=== PATIENT | male | born 1955 | race Caucasian/White ===

== ENCOUNTER 2018-07-08 09:44 | Inpatient (IN) ==
--- NOTE | 2018-07-08 10:05 | Emergency Department Note ---
Disposition Clinical Impression: Defibrillator discharge Chest pain Qualifiers: Chest pain type: unspecified Qualified Code(s): R07.9 - Chest pain, unspecified Disposition: Admitted As Inpatient Condition: Fair Referrals: Krys Muller CNP [Primary Care Provider] - Forms: ED Satisfaction Letter Time of Disposition: 13:55 Chest Pain HPI - General Chief Complaint: ED Chest Pain Stated Complaint: Defibulator went off Time Seen by Provider: 07/08/18 09:52 Source: patient Mode of arrival: wheelchair Limitations: no limitations Vital Signs Reviewed: Yes Nursing Notes Reviewed: Yes - History of Present Illness HPI Narrative: 63-year-old male with history of diabetes, hypertension, A. fib with a AICD presents for evaluation of "defibrillator went off". Patient states he has had it placed in 2010. Noted 2 shocks. States one occurred last night the other one this morning around 4:30. Noted some left-sided tenderness. Denies any chest pain currently. Denies any fevers or cough. Patient states he has not feeling short of breath intermittently over the past month. States that it was placed back in 2010 for his A. fib. Currently on Coumadin and aspirin. Patient denies history of heart attacks. Severity scale (1-10): 4 - Related Data Allergies Allergy/AdvReac Type Severity Reaction Status Date / Time Jvwdild-Gjx-Uyr Reductase Allergy Hives Verified 07/08/18 10:08 Inhibitor [Statins] All systems ED: reviewed and negative except as stated. Constitutional: Denies: fever Cardiovascular: Reports: chest pain. Denies: palpitations Respiratory: Reports: dyspnea. Denies: cough, sputum production Gastrointestinal: Denies: abdominal pain, nausea, vomiting Physical Exam - General Limitations: no limitations General appearance: alert, in no apparent distress - Head Head exam: atraumatic, normocephalic, normal inspection - Eye Eye exam: Present: normal appearance, PERRL, EOMI - ENT ENT exam: normal exam, mucous membranes moist - Neck Neck exam: Present: normal inspection - Chest Chest inspection: Present: normal inspection, symmetric chest wall rise - Respiratory Respiratory exam: Present: normal lung sounds bilaterally. Absent: respiratory distress - Cardiovascular Cardiovascular exam: Present: regular rate, normal rhythm. Absent: systolic murmur - Abdominal Exam Abdominal exam: Present: soft, Non-Tender - Extremities Exam Extremities exam: Present: normal inspection. Absent: pedal edema - Back Exam Back exam: Present: normal inspection - Neurological Exam Neurological exam: Present: alert, oriented X3, CN II-XII intact - Skin Skin exam: Present: warm, dry, intact, normal color Course Course Narrative: Patient seen and examined. Patient will get basic cardiopulmonary screening evaluation. We will attempt to interrogate the pacemaker. Disposition pending. - Reevaluation(s) Reevaluation #1: Patient condition stable. Time: 11:04 Reevaluation #2: Patient interrogation was reviewed. Patient did have 2 isolated episodes of 20/ 30 beats of V. tach with defibrillation and resolution. Patient was symptomatic with those. Will discuss the patient's presentation with cardiology any other recommendations. Time: 13:37 Reevaluation #3: Patient seen and examined. Patient's resting currently. Plan of care discussed at bedside. EKG shows sinus rhythm with T-wave inversions in V1. Left axis. No signs of ST elevation. Time: 13:58 - Consultations Consultation #1: Case discussed with cardiology who recommends admission with observation on telemetry. Time: 13:55 Vital Signs Temperature 98.2 F 07/08/18 09:50 Pulse Rate 59 07/08/18 09:50 Respiratory Rate 18 07/08/18 09:50 Blood Pressure 161/96 07/08/18 09:50 O2 Sat by Pulse Oximetry 100 07/08/18 09:50 Temperature 98.2 F 07/08/18 10:04 Pulse Rate 60 07/08/18 13:00 Respiratory Rate 21 07/08/18 13:00 Blood Pressure 144/97 07/08/18 13:00 O2 Sat by Pulse Oximetry 99 07/08/18 13:00 Oxygen Delivery Oxygen Delivery Room Air Chest Pain - MDM Narrative Medical decision making narrative: Patient seen and examined. Patient came in because of chest pain and defibrillation going off. Patient's been chest pain-free in the ED. Patient interrogation reveals a couple discrete episodes of V. tach with defibrillation. Case was discussed with cardiology recommended observation on telemetry since the patient has had 2 discharges within 24 hours. Patient elected lites reviewed and are essentially normal. Magnesium pending. - Lab Data Lab results reviewed: Yes I reviewed the patient's lab results. Result diagrams: 07/08/18 10:23 07/08/18 10:23 Lab Results 07/08/18 07/08/18 07/08/18 Range/Units 10:23 10:23 10:23 WBC 9.3 (4.3-11.1) K/mcL RBC 4.56 (4.19-5.50) M/mcL Hgb 13.1 (12.9-16.9) g/dL Hct 40.8 (37.5-50.1) % MCV 89.5 (83.0-100.0) fL MCH 28.7 (28.0-33.3) pg MCHC 32.1 (31.6-35.5) g/dL RDW 13.6 (11.5-14.5) % Plt Count 206 (140-400) K/mcL MPV 11.4 (9.4-12.4) fL Immature Gran % 0.4 (0-4) % Seg Neutrophils % 65.0 % Lymphocytes % 19.7 % Monocytes % 8.1 % Eosinophils % 6.3 % Basophils % 0.5 % Neutrophils # 6.0 (1.6-8.9) K/mcL Lymphocytes # 1.8 (0.6-4.6) K/mcL Monocytes # 0.8 (0.0-1.3) K/mcL Eosinophils # 0.6 (0.0-0.6) K/mcL Basophils # 0.1 (0.0-0.2) K/mcL PT 26.8 H (9.4-12.1) Seconds INR 2.4 APTT 44.7 H (26.0-36.0) Seconds Sodium (136-145) mEq/L Potassium (3.5-5.1) mEq/L Chloride (98-107) mEq/L Carbon Dioxide (23-29) mEq/L BUN (8-23) mg/dL Creatinine (0.70-1.30) mg/dL Est GFR ( Amer) (> 60) Est GFR (Non-Af Amer) (> 60) BUN/Creatinine Ratio (6-26) Glucose (70-105) mg/dL Calculated Osmolality (280-300) Calcium (8.6-10.3) mg/dL Troponin I (< 0.04) ng/mL B-Natriuretic Peptide 50 (Less than 100) pg/mL 07/08/18 Range/Units 10:23 WBC (4.3-11.1) K/mcL RBC (4.19-5.50) M/mcL Hgb (12.9-16.9) g/dL Hct (37.5-50.1) % MCV (83.0-100.0) fL MCH (28.0-33.3) pg MCHC (31.6-35.5) g/dL RDW (11.5-14.5) % Plt Count (140-400) K/mcL MPV (9.4-12.4) fL Immature Gran % (0-4) % Seg Neutrophils % % Lymphocytes % % Monocytes % % Eosinophils % % Basophils % % Neutrophils # (1.6-8.9) K/mcL Lymphocytes # (0.6-4.6) K/mcL Monocytes # (0.0-1.3) K/mcL Eosinophils # (0.0-0.6) K/mcL Basophils # (0.0-0.2) K/mcL PT (9.4-12.1) Seconds INR APTT (26.0-36.0) Seconds Sodium 138 (136-145) mEq/L Potassium 4.5 (3.5-5.1) mEq/L Chloride 106 (98-107) mEq/L Carbon Dioxide 23 (23-29) mEq/L BUN 15 (8-23) mg/dL Creatinine 1.26 (0.70-1.30) mg/dL Est GFR ( Amer) > 60 (> 60) Est GFR (Non-Af Amer) 58 L (> 60) BUN/Creatinine Ratio 12 (6-26) Glucose 109 H (70-105) mg/dL Calculated Osmolality 287 (280-300) Calcium 9.1 (8.6-10.3) mg/dL Troponin I < 0.03 (< 0.04) ng/mL B-Natriuretic Peptide (Less than 100) pg/mL - Radiology Data Radiology results reviewed: Yes I reviewed the patient's radiology results. Chest X-Ray 07/08/18 09:54 IMPRESSION: Mild left basilar atelectasis. D/ / Alma Delia Kelly MD / Alma Delia Kelly MD Interpreting Provider: Alma Delia Kelly MD - EKG Data EKG attestation: Yes I reviewed and interpreted this EKG. EKG results narrative: Atrial paced rhythm at a rate of 60. Narrow QRS. Left axis. Q waves in V1. No ST elevation. No old EKGs. Heart Score - Score History: Moderately Suspicious EKG: Non Specific repolarisation Disturbance Age: 45-65 Risk Factors: 1-2 risk factors Troponin: Less than normal limit HEART Score Total: 4 Attestation Statement - Attestation Attestation: I, Bryan Crews DO, examined this patient [id number] and my medical decision-making was reviewed with Dr. Dave Davidson, Resident Physician. I agree with the documented findings, disposition and treatment plan as described except to the extent set forth below. Please see my progress notes for details.
[2018-07-08] MEDS ORDERED: Aspirin 325 MG TABLET PO ONE (10:15)
[2018-07-08 10:36] LABS: Basophils # 0.1 K/mcL (0.0-0.2); Basophils % 0.5 %; Eosinophils # 0.6 K/mcL (0.0-0.6); Eosinophils % 6.3 %; Hematocrit 40.8 % (37.5-50.1); Hemoglobin 13.1 g/dL (12.9-16.9); Immature Granulocytes % 0.4 % (0-4); Lymphocytes # 1.8 K/mcL (0.6-4.6); Lymphocytes % 19.7 %; Mean Corpuscular HGB Conc 32.1 g/dL (31.6-35.5); Mean Corpuscular Hemoglobin 28.7 pg (28.0-33.3); Mean Corpuscular Volume 89.5 fL (83.0-100.0); Mean Platelet Volume 11.4 fL (9.4-12.4); Monocytes # 0.8 K/mcL (0.0-1.3); Monocytes % 8.1 %; Platelet Count 206 K/mcL (140-400); Red Blood Count 4.56 M/mcL (4.19-5.50); Red Cell Distribution Width 13.6 % (11.5-14.5)
--- NOTE | 2018-07-08 10:41 | Emergency Department Note ---
Disposition Clinical Impression: Defibrillator discharge Disposition: Admitted As Inpatient Condition: Fair Referrals: Krys Muller CNP [Primary Care Provider] - Forms: ED Satisfaction Letter Time of Disposition: 13:53 General Adult HPI - General Chief complaint: ED Chest Pain Stated complaint: Defibulator went off Time Seen by Provider: 07/08/18 09:52 Source: patient Mode of arrival: wheelchair Limitations: no limitations - History of Present Illness Pain Scale: 4 - Related Data Allergies Allergy/AdvReac Type Severity Reaction Status Date / Time Pvlnzti-Gsq-Eoa Reductase Allergy Hives Verified 07/08/18 10:08 Inhibitor [Statins] Constitutional: Denies: fever Cardiovascular: Reports: chest pain. Denies: palpitations Respiratory: Reports: dyspnea. Denies: cough, sputum production Gastrointestinal: Denies: abdominal pain, nausea, vomiting Past Medical History - Past Medical History Medical history: Reports: atrial fibrillation, diabetes, hypertension Psychiatric history: Reports: no psych history - Social History Smoking Status: Former smoker Smokeless Tobacco Status: No Alcohol use: Reports: none Drug use: Reports: none Physical Exam - General Limitations: no limitations General appearance: alert, in no apparent distress Course Vital Signs Temperature 98.2 F 07/08/18 09:50 Pulse Rate 59 07/08/18 09:50 Respiratory Rate 18 07/08/18 09:50 Blood Pressure 161/96 07/08/18 09:50 O2 Sat by Pulse Oximetry 100 07/08/18 09:50 Temperature 98.2 F 07/08/18 10:04 Pulse Rate 60 07/08/18 13:00 Respiratory Rate 21 07/08/18 13:00 Blood Pressure 144/97 07/08/18 13:00 O2 Sat by Pulse Oximetry 99 07/08/18 13:00 Oxygen Delivery Oxygen Delivery Room Air Medical Decision Making - Lab Data Result diagrams: 07/08/18 10:23 07/08/18 10:23 Lab Results 07/08/18 07/08/18 07/08/18 Range/Units 10:23 10:23 10:23 WBC 9.3 (4.3-11.1) K/mcL RBC 4.56 (4.19-5.50) M/mcL Hgb 13.1 (12.9-16.9) g/dL Hct 40.8 (37.5-50.1) % MCV 89.5 (83.0-100.0) fL MCH 28.7 (28.0-33.3) pg MCHC 32.1 (31.6-35.5) g/dL RDW 13.6 (11.5-14.5) % Plt Count 206 (140-400) K/mcL MPV 11.4 (9.4-12.4) fL Immature Gran % 0.4 (0-4) % Seg Neutrophils % 65.0 % Lymphocytes % 19.7 % Monocytes % 8.1 % Eosinophils % 6.3 % Basophils % 0.5 % Neutrophils # 6.0 (1.6-8.9) K/mcL Lymphocytes # 1.8 (0.6-4.6) K/mcL Monocytes # 0.8 (0.0-1.3) K/mcL Eosinophils # 0.6 (0.0-0.6) K/mcL Basophils # 0.1 (0.0-0.2) K/mcL PT 26.8 H (9.4-12.1) Seconds INR 2.4 APTT 44.7 H (26.0-36.0) Seconds Sodium (136-145) mEq/L Potassium (3.5-5.1) mEq/L Chloride (98-107) mEq/L Carbon Dioxide (23-29) mEq/L BUN (8-23) mg/dL Creatinine (0.70-1.30) mg/dL Est GFR ( Amer) (> 60) Est GFR (Non-Af Amer) (> 60) BUN/Creatinine Ratio (6-26) Glucose (70-105) mg/dL Calculated Osmolality (280-300) Calcium (8.6-10.3) mg/dL Troponin I (< 0.04) ng/mL B-Natriuretic Peptide 50 (Less than 100) pg/mL 07/08/18 Range/Units 10:23 WBC (4.3-11.1) K/mcL RBC (4.19-5.50) M/mcL Hgb (12.9-16.9) g/dL Hct (37.5-50.1) % MCV (83.0-100.0) fL MCH (28.0-33.3) pg MCHC (31.6-35.5) g/dL RDW (11.5-14.5) % Plt Count (140-400) K/mcL MPV (9.4-12.4) fL Immature Gran % (0-4) % Seg Neutrophils % % Lymphocytes % % Monocytes % % Eosinophils % % Basophils % % Neutrophils # (1.6-8.9) K/mcL Lymphocytes # (0.6-4.6) K/mcL Monocytes # (0.0-1.3) K/mcL Eosinophils # (0.0-0.6) K/mcL Basophils # (0.0-0.2) K/mcL PT (9.4-12.1) Seconds INR APTT (26.0-36.0) Seconds Sodium 138 (136-145) mEq/L Potassium 4.5 (3.5-5.1) mEq/L Chloride 106 (98-107) mEq/L Carbon Dioxide 23 (23-29) mEq/L BUN 15 (8-23) mg/dL Creatinine 1.26 (0.70-1.30) mg/dL Est GFR ( Amer) > 60 (> 60) Est GFR (Non-Af Amer) 58 L (> 60) BUN/Creatinine Ratio 12 (6-26) Glucose 109 H (70-105) mg/dL Calculated Osmolality 287 (280-300) Calcium 9.1 (8.6-10.3) mg/dL Troponin I < 0.03 (< 0.04) ng/mL B-Natriuretic Peptide (Less than 100) pg/mL Attestation Statement - Attestation Attestation: I, Bryan Crews DO, examined this patient [id number] and my medical decision-making was reviewed with Dr. Dave Davidson, Resident Physician. I agree with the documented findings, disposition and treatment plan as described except to the extent set forth below. Please see my progress notes for details. 63-year-old male presents to the emergency room with 2 events where his defibrillator went off overnight and then once in the shower this morning. Patient is a long-standing history of atrial fibrillation with pacemaker placement back in 2010. Is currently on Coumadin for that treatment. Patient has had his defibrillator go off once approximate year ago for the similar issue. He denies any medication changes trauma injuries or other symptoms prior to the event. He denied chest pain shortness of breath headache vision changes nausea vomiting or diarrhea. No fevers no chills. Patient has not had any issues with his pacemaker and has not had it interrogated here recently. Patient will have screening labs including CBC chemistry electrolytes as well as troponin. Chest x-ray will be resulted and EKG will be collected. Vital signs remained stable while here. Patient does not appear to be in any specific distress. The pacemaker will be interrogated. He currently is under the care of cardiology at this facility. Patient will have definitive treatment course and evaluation established in the emergency room. Otherwise no emergent intervention is required. Coagulation studies will be added on considering he is on Coumadin. Physical exam is otherwise unremarkable. Lungs are clear heart is regular abdomen is soft no pulsatile masses or lesions are noted. See detailed documentation of the physical exam, medical intervention, medical decision-making and disposition in the resident physician's note. Patient does see temperature regulator Dr. Castro at this facility. No critical care applied to the patient's treatment course at this time. 1335 Patient has what appears to be interrogation of the pacemaker showing 2 runs of V. fib V. tach. Patient is been doing well here. He has more pain in left side of his chest wall after the defibrillation. The temperature regulator was contacted and they recommended admission for observations considering the 2 times pain defibrillator. Patient is otherwise asymptomatic care with normal labs and a stable INR. Hospitalist was contacted. Dr. Kelly reviewed the case at this point had no other concerns or issues this time. Patient will be observed in the emergency room until admission process is completed.
[2018-07-08 11:00] LABS: INR 2.4; Prothrombin Time 26.8 Seconds (9.4-12.1)
[2018-07-08 11:02] LABS: Activated Partial Thrombo Time 44.7 Seconds (26.0-36.0)
[2018-07-08 11:05] LABS: Troponin I < 0.03 ng/mL (< 0.04)
[2018-07-08 11:09] LABS: BUN/Creatinine Ratio 12 (6-26); Blood Urea Nitrogen 15 mg/dL (8-23); Calcium 9.1 mg/dL (8.6-10.3); Carbon Dioxide 23 mEq/L (23-29); Chloride 106 mEq/L (98-107); Glucose 109 mg/dL (70-105); Osmolality,Calculated 287 (280-300); Potassium 4.5 mEq/L (3.5-5.1); Sodium 138 mEq/L (136-145); eGFR For Non-African Americans 58 (> 60)
--- NOTE | 2018-07-08 13:31 | Electrocardiograph Report ---
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
--- NOTE | 2018-07-08 13:32 | Electrocardiograph Report ---
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
[2018-07-08 14:20] LABS: Magnesium 1.9 mg/dL (1.6-2.6)
[2018-07-08] MEDS ORDERED: traMADol 50 MG TABLET PO PRN (14:20)
[2018-07-08] MEDS ORDERED: Naloxone 0.4 MG/ML INJ IVP PRN (14:20)
[2018-07-08] MEDS ORDERED: Acetaminophen 325 MG TABLET PO PRN (14:20)
[2018-07-08] MEDS ORDERED: *HR* Dextrose 50 % in Water (Syg) 50 ML SYRINGE IVP PRN (14:57)
[2018-07-08] MEDS ORDERED: D5% in Water 1,000 ML IVC PRN (14:57)
[2018-07-08] MEDS ORDERED: Dextrose Gel 15 GM/37.5 ML TUBE PO PRN ×2 (14:57)
[2018-07-08 15:46] LABS: Magnesium 1.9 mg/dL (1.6-2.6); Thyroid Stimulating Hormone 3.926 mcIU/mL (0.340-5.600)
[2018-07-08 16:01] LABS: Digoxin 0.7 ng/mL (0.8-2.0)
[2018-07-08] MEDS ORDERED: Warfarin perPT PO PRN (18:00)
[2018-07-08] MEDS ORDERED: *HR* Warfarin 7.5 MG TABLET PO ONE (18:00)
[2018-07-08] MEDS: Insulin LISPRO 300 UNITS/3 ML VIAL SQ SCH ×2 (21:08→21:09)
[2018-07-09 05:31] LABS: Basophils # 0.1 K/mcL (0.0-0.2); Basophils % 0.6 %; Eosinophils # 0.5 K/mcL (0.0-0.6); Eosinophils % 6.5 %; Hematocrit 38.7 % (37.5-50.1); Hemoglobin 12.5 g/dL (12.9-16.9); Immature Granulocytes % 0.5 % (0-4); Lymphocytes # 1.9 K/mcL (0.6-4.6); Lymphocytes % 24.7 %; Mean Corpuscular HGB Conc 32.3 g/dL (31.6-35.5); Mean Corpuscular Hemoglobin 28.1 pg (28.0-33.3); Mean Platelet Volume 11.7 fL (9.4-12.4); Monocytes # 0.6 K/mcL (0.0-1.3); Monocytes % 7.7 %; Neutrophils # 4.7 K/mcL (1.6-8.9); Platelet Count 197 K/mcL (140-400); Red Blood Count 4.45 M/mcL (4.19-5.50); Red Cell Distribution Width 13.8 % (11.5-14.5)
[2018-07-09 05:35] LABS: INR 2.4; Prothrombin Time 26.7 Seconds (9.4-12.1)
[2018-07-09 05:54] LABS: BUN/Creatinine Ratio 12 (6-26); Blood Urea Nitrogen 14 mg/dL (8-23); Calcium 9.3 mg/dL (8.6-10.3); Carbon Dioxide 25 mEq/L (23-29); Chloride 106 mEq/L (98-107); Glucose 124 mg/dL (70-105); Magnesium 1.9 mg/dL (1.6-2.6); Osmolality,Calculated 288 (280-300); Potassium 4.1 mEq/L (3.5-5.1); Sodium 138 mEq/L (136-145); eGFR For Non-African Americans > 60 (> 60)
[2018-07-09] MEDS: Spironolactone 25 MG TABLET PO SCH (08:04)
[2018-07-09] MEDS: Aspirin Enteric Coated 81 MG Tablet PO SCH (08:04)
[2018-07-09] MEDS: Lisinopril 20 MG TABLET PO SCH (08:04)
[2018-07-09] MEDS: *HR* Amiodarone 200 MG TABLET PO SCH (08:04)
[2018-07-09] MEDS: Insulin LISPRO 300 UNITS/3 ML VIAL SQ SCH ×4 (08:05→21:17)
[2018-07-09] MEDS ORDERED: *HR* Digoxin 0.125 MG TABLET PO SCH (09:00)
--- NOTE | 2018-07-09 09:51 | Cardiology Consult Note ---
<Tung Muller R - Last Filed: 07/09/18 09:48> Date of Encounter: 07/09/18 Time of Encounter: 09:48 Assessment and Plan (1) Defibrillator discharge Current Visit: Yes Status: Acute Reports ICD shock x 2 yesterday. [employer] ICD reportedly interrogated by device rep and showed VT/VF. Will call company to confirm/obtain interrogation report. Telemetry review 4 beat runs of NSVT. Reports ICD shock in December 2017 was first shock. Device implanted in 2010 for NICMP. Reports last [facility] 2010 without intervention. K 4.1, Mag 1.9--will replace. Pt is on Amiodarone 200mg daily, Coreg 12.5mg BID and Digoxin 125mcg daily. Will stop digoxin. Increase Coreg to 12.5mg BID. Continue Amiodarone. Pt unsure of EF--all prior testing done at [facility]. Obtain TTE to evaluate structure and function. If EF reduction is global, without RWMA, will plan for stress test tomorrow to rule out ischemic cause of VT/ICD shock. Continue to follow. (2) Nonischemic cardiomyopathy Current Visit: Yes Status: Acute Reportedly NICMP diagnosed in 2010, with ICD placement at that time. [facility] in 2010 , per pt without intervention. Continue/increase BB, continue ACEi. Stop digoxin as above. Pt is euvolemic on exam. TTE to evaluate structure and function. (3) Atrial fibrillation Current Visit: No Status: Chronic Known Hx of PAF. Continue BB and Amiodarone. Currently SR. Anticoagulated on Coumadin, INR 2.4. Qualifiers: Atrial fibrillation type: paroxysmal Qualified Code(s): I48.0 - Paroxysmal atrial fibrillation Discussion w patient/family: The assessment and plan as outlined above was discussed with the patient and/or family members who expressed understanding and agreement. All questions were answered. Thank you for involving us in the care of your patient. Please call with any questions. I will discuss all the above with Dr. Pfeiffer and make changes as necessary. History of Present Illness Consult date: 07/09/18 Consult reason: ICD shock Chief complaint: ICD shock History of present illness: Mr. Pate is a 63 year old male with PMH of NICMP, ICD, DM, HTN, A-Fib anticoagulated on Coumadin, who presented from home after his ICD fired twice. He reports seeing a "bright light", feeling as though he was going to pass out, then his ICD fired. He did not lose consciousness. No new meds, changes in doses , missed meds or otc. He states his ICD was implanted in 2010. His first ICD shock was December 2017, then now. Reportedly device interrogated showed VT. However, official report is unable to be located. [employer] device. Pt states he underwent LHC in 2010 without stent placement. All prior testing has been done at [facility]. He is unsure of his EF. He denies chest pain. Reports chronic exertional dyspnea. Cardiology consulted for further recs. Mag 1.9, K 4.1. INR 2.4. Past Med Surg Social Fam HX - Past Medical History Medical history: atrial fibrillation, diabetes, hypertension Psychiatric history: no psych history - Past Surgical History Additional surgical history: sinus surgery - Social History Smoking Status: Former smoker Smokeless Tobacco Status: No Alcohol use: none Drug use: none - Family History Father Living Status: Age at : 80 Cause of : "HEART GAVE UP" Hx Family Cardiac Disorders: Yes Hx Family Respiratory Disorders: Yes Hx Family Cancer: No Hx Family Endocrine Disorder: No Hx Family Neurologic Disorders: No Hx Family Medical Disorders: Yes Medications and Allergies Amiodarone [Cordarone] 200 mg PO DAILY 07/08/18 [History] Aspirin Enteric Coated [Aspirin EC] 81 mg PO DAILY 07/08/18 [History] Carvedilol 12.5 mg PO BID 07/08/18 [History] Digoxin [Lanoxin] 0.125 mg PO DAILY 07/08/18 [History] Lisinopril [Zestril] 20 mg PO DAILY 07/08/18 [History] Metformin HCl [Glucophage] 1,000 mg PO BID 07/08/18 [History] Spironolactone [Aldactone] 25 mg PO DAILY 07/08/18 [History] Warfarin [Coumadin] 7.5 mg PO DAILY 07/08/18 [History] 3 Allergy/AdvReac Type Severity Reaction Status Date / Time Icfbvza-[id number]-Vuu Reductase Allergy Hives Verified 07/08/18 10:08 Inhibitor [Statins] All Systems Review: The remainder of the systems were reviewed and are negative - Cardiovascular Cardiovascular: as per HPI, dyspnea on exertion - Respiratory Respiratory: dyspnea Physical Examination Vital Signs, Last 4 Hours Temp Pulse Resp BP Pulse Ox 07/09/18 07:08 97.7 F 64 16 164/51 97 Vital Signs Temp Pulse Resp BP Pulse Ox 07/09/18 07:08 97.7 F 64 16 164/51 97 07/09/18 04:56 60 14 120/73 97 07/09/18 00:45 60 14 115/77 97 07/08/18 19:28 98.4 F 60 14 141/84 97 07/08/18 18:06 98.2 F 60 15 165/87 96 07/08/18 17:14 20 139/80 07/08/18 15:38 60 17 140/88 98 07/08/18 13:00 60 21 144/97 99 07/08/18 11:01 60 16 145/86 98 07/08/18 10:14 99 07/08/18 10:09 60 16 143/90 100 07/08/18 10:04 98.2 F 59 18 161/96 100 Intake and Output 07/08/18 07/09/18 07/09/18 23:59 07:59 15:59 Intake Total 240 / 240 Output Total 0 / 0 600 / 600 325 / 325 Balance 0 / 0 -600 / -600 -85 / -85 Intake: Oral 240 / 240 Output: Urine 0 / 0 600 / 600 325 / 325 Other: Meal Breakfast Percent of Meal Consumed 100% Weight 119.5 kg 119.1 kg Blood Glucose* 123 117 Patient Weight 07/09/18 23:59 Weight 119.1 kg General: Conversant, No Apparent Distress HEENT: Atraumatic, Normocephaly, Mucus Membranes Moist Neck: No JVD, Normal carotid pulses Cardiac: Reg Rate and Rhythm, Normal S1 and S2, No Murmur Lungs: Normal Breath Sounds, No Wheeze, Rales, Rhonchi Neuro: Alert and responsive, No focal deficits noted Abdomen: Soft, Non-Tender Skin: No rashes noted on visualized skin Musculoskeletal: No Chest Wall Tenderness Extremities: No Clubbing, No Cyanosis, No Edema, Normal Pulses Results 07/09/18 05:06 07/09/18 05:06 Lab Results 07/08/18 07/09/18 07/09/18 21:07 05:06 05:06 WBC 7.8 Hgb 12.5 L Hct 38.7 Plt Count 197 INR Sodium Potassium Chloride Carbon Dioxide BUN Creatinine Glucose Calcium Magnesium Troponin I < 0.03 < 0.03 07/09/18 07/09/18 05:06 05:06 WBC Hgb Hct Plt Count INR 2.4 Sodium 138 Potassium 4.1 Chloride 106 Carbon Dioxide 25 BUN 14 Creatinine 1.21 Glucose 124 H Calcium 9.3 Magnesium 1.9 Troponin I Short CBC 07/09/18 07/08/18 Range/Units 05:06 10:23 WBC 7.8 9.3 (4.3-11.1) K/mcL Hgb 12.5 L 13.1 (12.9-16.9) g/dL Hct 38.7 40.8 (37.5-50.1) % Plt Count 197 206 (140-400) K/mcL Neutrophils # 4.7 6.0 (1.6-8.9) K/mcL BMP 07/09/18 07/08/18 Range/Units 05:06 10:23 Sodium 138 138 (136-145) mEq/L Potassium 4.1 4.5 (3.5-5.1) mEq/L Chloride 106 106 (98-107) mEq/L Carbon Dioxide 25 23 (23-29) mEq/L BUN 14 15 (8-23) mg/dL Creatinine 1.21 1.26 (0.70-1.30) mg/dL Glucose 124 H 109 H (70-105) mg/dL Calcium 9.3 9.1 (8.6-10.3) mg/dL Cardiac Enzymes 07/09/18 07/08/18 07/08/18 Range/Units 05:06 21:07 14:39 Troponin I < 0.03 < 0.03 < 0.03 (< 0.04) ng/mL 07/08/18 Range/Units 10:23 Troponin I < 0.03 (< 0.04) ng/mL Impressions Chest X-Ray 07/08/18 09:54 IMPRESSION: Mild left basilar atelectasis. D/ / Alma Delia Kelly MD / Alma Delia Kelly MD Interpreting Provider: Alma Delia Kelly MD Active Medications Acetaminophen (Tylenol) 650 mg PO Q6HR PRN PRN Reason: Mild Pain/Fever Stop: 01/07/19 14:21 Amiodarone HCl (Cordarone) 200 mg PO DAILY [facility] Stop: 01/08/19 09:01 Last Admin: 07/09/18 08:04 Dose: 200 mg Aspirin (Aspirin Ec) 81 mg PO DAILY [facility] Stop: 01/08/19 09:01 Last Admin: 07/09/18 08:04 Dose: 81 mg Carvedilol (Coreg) 25 mg PO BIDWM [facility] Stop: 01/08/19 17:01 Dextrose/Water (Dextrose 50% (Syg)) 25 ml IVP AD PRN PRN Reason: Hypoglycemia Stop: 01/07/19 14:58 Glucagon (Glucagen) 1 mg IM ONCE PRN PRN Reason: Hypoglycemia Stop: 01/07/19 14:58 Glucose (Gluctose) 15 gm PO ONCE PRN PRN Reason: Hypoglycemia Stop: 01/07/19 14:58 Glucose (Gluctose) 30 gm PO ONCE PRN PRN Reason: Hypoglycemia Stop: 01/07/19 14:58 Dextrose (Dextrose 5%) 1,000 mls @ 100 mls/hr IVC .Q10H PRN PRN Reason: HYPOGLYCEMIA Stop: 01/07/19 14:58 Insulin Human Lispro (Humalog) 0 units SQ HS [facility] PRN Reason: Protocol Stop: 01/07/19 21:01 Last Admin: 07/08/18 21:08 Dose: Not Given Insulin Human Lispro (Humalog) 0 units SQ TIDAC [facility] PRN Reason: Protocol Stop: 01/07/19 16:31 Last Admin: 07/09/18 08:05 Dose: Not Given Lisinopril (Zestril) 20 mg PO DAILY [facility] PRN Reason: Protocol Stop: 01/08/19 09:01 Last Admin: 07/09/18 08:04 Dose: 20 mg Naloxone HCl (Narcan) 0.4 mg IVP Q2MIN PRN PRN Reason: SEE COMMENTS Stop: 01/07/19 14:21 Spironolactone (Aldactone) 25 mg PO DAILY [facility] Stop: 01/08/19 09:01 Last Admin: 07/09/18 08:04 Dose: 25 mg Tramadol HCl (Ultram) 50 mg PO Q6HR PRN PRN Reason: Severe Pain Stop: 01/07/19 14:21 Warfarin Sodium (Coumadin Perpt) 1 each PO DAILY@1800 PRN PRN Reason: SEE COMMENTS Stop: 01/07/19 18:01 - EKG Interpretation EKG results cardiology: personally reviewed (SR, LBBB), other (12 hr tele AVG HR 60, 4 beat run NSVT) Consult Discharge Plan - Plan Referrals: Krys Muller, DOCK MANAGER [Primary Care Provider] - <Kentrell A - Last Filed: 07/09/18 16:31> Date of Encounter: 07/09/18 - Attending Attestation I have personally performed a face to face evaluation on this patient. I have reviewed and agree with the care plan. History and Exam by me shows: 63 y/o M with hx of NICM s/p AICD presenting with ICD discharges x 2 in 24hrs. Interrogation reveals VT. For echo and stress test to evaluate for WMA which if present would warrant coronary angiogram. Keep K above 4 and Mag above 2. Assessment and Plan Discussion w patient/family: The assessment and plan as outlined above was discussed with the patient and/or family members who expressed understanding and agreement. All questions were answered. Thank you for involving us in the care of your patient. Please call with any questions. History of Present Illness History of present illness: Mr. Pate is a 63 year old male All Systems Review: The remainder of the systems were reviewed and are negative Physical Examination Vital Signs, Last 4 Hours Temp Pulse Resp BP Pulse Ox 07/09/18 15:24 97.5 F L 60 16 141/88 96 Results 07/09/18 05:06 07/09/18 05:06 Lab Results 07/08/18 07/09/18 07/09/18 21:07 05:06 05:06 WBC 7.8 Hgb 12.5 L Hct 38.7 Plt Count 197 INR Sodium Potassium Chloride Carbon Dioxide BUN Creatinine Glucose Calcium Magnesium Troponin I < 0.03 < 0.03 07/09/18 07/09/18 05:06 05:06 WBC Hgb Hct Plt Count INR 2.4 Sodium 138 Potassium 4.1 Chloride 106 Carbon Dioxide 25 BUN 14 Creatinine 1.21 Glucose 124 H Calcium 9.3 Magnesium 1.9 Troponin I
--- NOTE | 2018-07-09 10:05 | Internal Med Progress Note ---
Hospitalist Progress Note - Encounter Date of Encounter: 07/09/18 Time of Encounter: 11:00 - Subjective Interval History: no firing of device while here. no cp, palpitations, presyncope, syncope or sob/ n/v. Feeling at baseline. meds adjusted this morning as per cards and tolerating well. - Exam Vitals: Temp Pulse Resp BP Pulse Ox 97.7 F 64 16 164/51 97 07/09/18 07:08 07/09/18 07:08 07/09/18 07:08 07/09/18 07:08 07/09/18 07:08 Exam: General: awake, alert, appears stated age Cardiovascular:regular rate and rhythm, normal S1 & S2, no murmurs No JVD. radial pulses 2+, no lower extremity edema Lungs:Normal breath sounds, no wheezes, or crackles. Normal respiratory effort on ra Abdomen:Soft, non-tender, non-distended, no rigidity, + bowel sounds Neurological: AAOx3 Skin:Normal color, no rash, no pallor, no jaundice - Assessment and Plan (1) Defibrillator discharge Current Visit: Yes Status: Acute Assessment and Plan: device discharge x2 prior to presentation Device implanted in 2010 for NICMP. Reports last [facility] 2010 without intervention -no acute ischemic changes on ekg -trop neg -[employer] ICD reportedly interrogated by device rep and showed VT/VF in ED -dig level low on admit -tsh wnl, rule out infectious process- ua neg, CXR unremarkable, no leukocytosis or fever -check UDS: neg -monitor lytes and replete as needed -trend trops neg -cont tele--4 beat run of NSVT -cards following--stop digoxin. Increase Coreg to 12.5mg BID. Continue Amiodarone. -check TTE , and as per cards If EF reduction is global, without RWMA, will plan for stress test tomorrow to rule out ischemic cause of VT/ICD shock. (2) Atrial fibrillation Current Visit: No Status: Chronic Assessment and Plan: Paroxysmal afib hx no eisode here -on coumadin with inr at goal -cont coumadin- pharm to dose -monitor lytes, tele -cont BB and amio (3) Diabetes mellitus Current Visit: Yes Status: Chronic Assessment and Plan: on metformin at home -will hold here -accu checks and SSI (4) Hypertension Current Visit: Yes Status: Chronic Assessment and Plan: BP mildly elevated on admit 160s sbp, now down to 140s sbp/80-90s -cont meds as above cont to monitor will require outpt fu upon dc (5) Nonischemic cardiomyopathy Current Visit: Yes Status: Chronic Assessment and Plan: Reportedly NICMP diagnosed in 2010, with ICD placement at that time. [facility] in 2010, per pt without intervention. asa, BB, ACEi. Stop digoxin as above. echo as above DVT Prophylaxis: on coumadin - Time Spent with Patient Total time spent is greater than 50% in coordination of care (as documented) at patient's floor/unit and/or counseling patient: 25 - 35 minutes Plan of Care Discussed with: patient Internal Medicine: Result - Labs CBC & Chem 7: 07/09/18 05:06 07/09/18 05:06 Labs: Short CBC 07/09/18 Range/Units 05:06 WBC 7.8 (4.3-11.1) K/mcL Hgb 12.5 L (12.9-16.9) g/dL Hct 38.7 (37.5-50.1) % Plt Count 197 (140-400) K/mcL Neutrophils # 4.7 (1.6-8.9) K/mcL BMP 07/09/18 05:06 Sodium 138 Potassium 4.1 Chloride 106 Carbon Dioxide 25 BUN 14 Creatinine 1.21 Glucose 124 H Calcium 9.3 Cardiac Enzymes 07/08/18 07/09/18 Range/Units 21:07 05:06 Troponin I < 0.03 < 0.03 (< 0.04) ng/mL - ABG Interpretation ABG results: PT/INR, D-dimer PT 26.7 Seconds (9.4-12.1) H 07/09/18 05:06 Consult Discharge Plan - Plan Referrals: Krys Muller, [employer]ANCE [Primary Care Provider] - (2) Atrial fibrillation Qualifiers: Atrial fibrillation type: paroxysmal Qualified Code(s): I48.0 - Paroxysmal atrial fibrillation (3) Diabetes mellitus Qualifiers: Diabetes mellitus type: type 2 Diabetes mellitus terminal supervisor insulin use: without terminal supervisor use Diabetes mellitus complication status: with unspecified complications Qualified Code(s): E11.8 - Type 2 diabetes mellitus with unspecified complications (4) Hypertension Qualifiers: Hypertension type: essential hypertension Qualified Code(s): I10 - Essential (primary) hypertension
[2018-07-09 12:19] LABS: Bilirubin,Urine Negative (Negative); Blood,Urine Negative (Negative); Clarity,Urine Clear (Clear); Color,Urine Yellow (Yellow); Glucose,Urine (UA) Normal (Normal); Ketones,Urine Negative (Negative); Leukocyte Esterase,Urine Negative (Negative); Nitrite,Urine Negative (Negative); PH,Urine 6.5 pH Units (5.0-8.0); Protein,Urine Negative (Neg-Trace); Specific Gravity,Urine 1.011 (1.010-1.025); Urobilinogen,Urine Normal (Normal)
[2018-07-09 12:36] LABS: Amphetamine Screen,Urine Negative ng/mL (Cutoff=1000); Barbiturate Screen,Urine Negative ng/mL (Cutoff=200); Benzodiazepines Screen,Urine Negative ng/mL (Cutoff=200); Cannabinoid Screen,Urine Negative ng/mL (Cutoff = 50); Cocaine Screen,Urine Negative ng/mL (Cutoff= 300); Opiate Screen,Urine Negative ng/mL (Cutoff=300); Phencyclidine Screen,Urine Negative ng/mL (Cutoff=25)
[2018-07-09] MEDS ORDERED: *HR* Warfarin 7.5 MG TABLET PO SCH (18:00)
[2018-07-10 05:03] LABS: INR 2.2; Prothrombin Time 24.7 Seconds (9.4-12.1)
[2018-07-10 05:23] LABS: BUN/Creatinine Ratio 14 (6-26); Blood Urea Nitrogen 17 mg/dL (8-23); Calcium 9.3 mg/dL (8.6-10.3); Carbon Dioxide 23 mEq/L (23-29); Chloride 106 mEq/L (98-107); Glucose 126 mg/dL (70-105); Magnesium 2.2 mg/dL (1.6-2.6); Osmolality,Calculated 291 (280-300); Potassium 4.3 mEq/L (3.5-5.1); Sodium 139 mEq/L (136-145); eGFR For Non-African Americans 59 (> 60)
--- NOTE | 2018-07-10 08:03 | Internal Med Progress Note ---
Hospitalist Progress Note - Encounter Date of Encounter: 07/10/18 Time of Encounter: 10:15 - Subjective Interval History: pt awake, family present. No cp, plapitations, pressure, sob, presyncope or syncope. Reported cards read his echo and ordered stress test which he is going down for shortly. - Exam Vitals: Temp Pulse Resp BP Pulse Ox 97.8 F 59 18 119/77 96 07/10/18 05:02 07/10/18 07:40 07/10/18 07:40 07/10/18 07:40 07/10/18 07:40 Exam: General: awake, alert, appears stated age Cardiovascular:regular rate and rhythm, normal S1 & S2, no murmurs No JVD. radial pulses 2+ and regular, no lower extremity edema Lungs:Normal breath sounds, no wheezes, or crackles. Normal respiratory effort on ra Abdomen:Soft, non-tender, non-distended, + bowel sounds Neurological: AAOx3 Skin:Normal color, no rash, no pallor, no jaundice - Assessment and Plan (1) Defibrillator discharge Current Visit: Yes Status: Acute Assessment and Plan: device discharge x2 prior to presentation Device implanted in 2010 for NICMP. Reports last [facility] 2010 without intervention -no acute ischemic changes on ekg -trop neg -[employer] ICD reportedly interrogated by device rep and showed VT/VF in ED -dig level low on admit -tsh wnl, rule out infectious process- ua neg, CXR unremarkable, no leukocytosis or fever -check UDS: neg -monitored lytes and repleted as needed -trend trops neg -tele -cards following--stopped digoxin. Increased Coreg to 12.5mg BID. Continued Amiodarone. -check TTE ,pending - and as per cards If EF reduction is global, without RWMA, will plan for stress test today to rule out ischemic cause of VT/ICD shock. (2) Atrial fibrillation Current Visit: No Status: Chronic Assessment and Plan: Paroxysmal afib hx no episode here -on coumadin with inr at goal -cont coumadin- pharm to dose -monitored lytes, tele -cont BB and amio (3) Diabetes mellitus Current Visit: Yes Status: Chronic Assessment and Plan: on metformin at home -will hold here -accu checks and SSI (4) Hypertension Current Visit: Yes Status: Chronic Assessment and Plan: BP mildly elevated on admit 160s sbp, now normotensive -cont meds as above cont to monitor will require outpt fu upon dc (5) Nonischemic cardiomyopathy Current Visit: Yes Status: Chronic Assessment and Plan: Reportedly NICMP diagnosed in 2010, with ICD placement at that time. [facility] in 2010, per pt without intervention. asa, BB, ACEi. Stop digoxin as above. echo as above DVT Prophylaxis: on coumadin - Time Spent with Patient Total time spent is greater than 50% in coordination of care (as documented) at patient's floor/unit and/or counseling patient: 25 - 35 minutes Plan of Care Discussed with: patient Internal Medicine: Result - Labs CBC & Chem 7: 07/09/18 05:06 07/10/18 03:18 Labs: BMP 07/10/18 03:18 Sodium 139 Potassium 4.3 Chloride 106 Carbon Dioxide 23 BUN 17 Creatinine 1.23 Glucose 126 H Calcium 9.3 Urine 07/09/18 Range/Units 11:40 Urine Color Yellow (Yellow) Urine Clarity Clear (Clear) Urine pH 6.5 (5.0-8.0) pH Units Ur Specific [place] 1.011 (1.010-1.025) Urine Protein Negative (Neg-Trace) mg/dL Urine Glucose (UA) Normal (Normal) mg/dL - ABG Interpretation ABG results: PT/INR, D-dimer PT 24.7 Seconds (9.4-12.1) H 07/10/18 03:18 Consult Discharge Plan - Plan Referrals: Krys Muller, ORGANIZATIONAL DEVELOPMENT MANAGER [Primary Care Provider] - 07/15/18 11:15 am (2) Atrial fibrillation Qualifiers: Atrial fibrillation type: paroxysmal Qualified Code(s): I48.0 - Paroxysmal atrial fibrillation (3) Diabetes mellitus Qualifiers: Diabetes mellitus type: type 2 Diabetes mellitus assisted insulin use: without termite exterminator use Diabetes mellitus complication status: with unspecified complications Qualified Code(s): E11.8 - Type 2 diabetes mellitus with unspecified complications (4) Hypertension Qualifiers: Hypertension type: essential hypertension Qualified Code(s): I10 - Essential (primary) hypertension
--- NOTE | 2018-07-10 08:52 | Cardiology Progress Note ---
Date of Encounter: 07/10/18 Time of Encounter: 08:50 Assessment and Plan (1) Defibrillator discharge Current Visit: Yes Status: Acute Biotronik ICD interrogated and confirms 2 shocks--1 on 07/07 and 1 on 07/08 for VF zone arrhythmias. December 2017 was first ICD shock. Device implanted in 2010 for NICMP. Reports [facility] 2010 without intervention. K 4.3, Mag replaced yesterday, 2.2 today. Home meds- Amiodarone 200mg daily, Coreg 12.5mg BID and Digoxin 125mcg daily. Stopped digoxin. Increased Coreg to 25mg BID. Continue Amio 200mg daily. All prior testing done at [facility] in 2010. TTE currently pending. Pharmacologic nuclear stress test ordered today to evaluate for ischemia. Continue to follow. (2) Nonischemic cardiomyopathy Current Visit: Yes Status: Chronic Reportedly NICMP diagnosed in 2010, with ICD placement at that time. LHC in 2010 , per pt without intervention. Continue/increase BB, continue ACEi. Stop digoxin as above. Pt is euvolemic on exam. TTE to evaluate structure and function. (3) Atrial fibrillation Current Visit: No Status: Chronic Known Hx of PAF. Continue BB and Amiodarone. Currently SR. Anticoagulated on Coumadin, INR 2.2. Qualifiers: Atrial fibrillation type: paroxysmal Qualified Code(s): I48.0 - Paroxysmal atrial fibrillation Discussion w patient/family: The assessment and plan as outlined above was discussed with the patient and/or family members who expressed understanding and agreement. All questions were answered. Thank you for involving us in the care of your patient. Please call with any questions. I will discuss all the above with Dr. Pfeiffer and make changes as necessary. Subjective Principal diagnosis: ICD shock Interval history: TTE pending. Device interrogation received. 2 shocks--one 07/07 and 07/08 for VF zone. Pt reports chest pressure this AM that started approximately 1 hour ago rated 2/10. Objective Vital Signs, Last 4 Hours Temp Pulse Resp BP Pulse Ox 07/10/18 07:40 59 18 119/77 96 07/10/18 05:02 97.8 F 60 16 116/62 96 Vital Signs Temp Pulse Resp BP Pulse Ox 07/10/18 07:40 59 18 119/77 96 07/10/18 05:02 97.8 F 60 16 116/62 96 07/10/18 01:27 97.6 F 60 16 95/55 94 07/09/18 19:19 97.5 F L 60 16 101/60 96 07/09/18 15:24 97.5 F L 60 16 141/88 96 07/09/18 10:48 98.4 F 60 14 123/68 95 Intake and Output 07/09/18 07/10/18 07/10/18 23:59 07:59 15:59 Intake Total 290 / 290 104 / 104 Output Total 300 / 300 200 / 200 Balance -10 / -10 - / -96 Intake: IV Fluids 104 / 104 Oral 290 / 290 0 / 0 Output: Urine 300 / 300 200 / 200 Other: Meal Dinner Percent of Meal Consumed 100% Weight 118.2 kg Blood Glucose* 164 143 Patient Weight 07/10/18 23:59 Weight 118.2 kg General: Conversant HEENT: Atraumatic, Normocephaly, Mucus Membranes Moist Neck: No JVD, Normal carotid pulses Cardiac: Reg Rate and Rhythm, Normal S1 and S2, No Murmur Lungs: Normal Breath Sounds, No Wheeze, Rales, Rhonchi Neuro: Alert and responsive, No focal deficits noted Abdomen: Soft, Non-Tender Skin: No rashes noted on visualized skin Musculoskeletal: No Chest Wall Tenderness Extremities: No Clubbing, No Cyanosis, No Edema, Normal Pulses Results 07/09/18 05:06 07/10/18 03:18 Lab Results 07/10/18 07/10/18 03:18 03:18 INR 2.2 Sodium 139 Potassium 4.3 Chloride 106 Carbon Dioxide 23 BUN 17 Creatinine 1.23 Glucose 126 H Calcium 9.3 Magnesium 2.2 BMP 07/10/18 Range/Units 03:18 Sodium 139 (136-145) mEq/L Potassium 4.3 (3.5-5.1) mEq/L Chloride 106 (98-107) mEq/L Carbon Dioxide 23 (23-29) mEq/L BUN 17 (8-23) mg/dL Creatinine 1.23 (0.70-1.30) mg/dL Glucose 126 H (70-105) mg/dL Calcium 9.3 (8.6-10.3) mg/dL Urine 07/09/18 Range/Units 11:40 Urine Color Yellow (Yellow) Urine Clarity Clear (Clear) Urine pH 6.5 (5.0-8.0) pH Units Ur Specific [place] 1.011 (1.010-1.025) Urine Protein Negative (Neg-Trace) mg/dL Urine Glucose (UA) Normal (Normal) mg/dL Active Medications Acetaminophen (Tylenol) 650 mg PO Q6HR PRN PRN Reason: Mild Pain/Fever Stop: 01/07/19 14:21 Amiodarone HCl (Cordarone) 200 mg PO DAILY [facility] Stop: 01/08/19 09:01 Last Admin: 07/09/18 08:04 Dose: 200 mg Aspirin (Aspirin Ec) 81 mg PO DAILY [facility] Stop: 01/08/19 09:01 Last Admin: 07/09/18 08:04 Dose: 81 mg Carvedilol (Coreg) 25 mg PO BIDWM [facility] Stop: 01/08/19 17:01 Last Admin: 07/09/18 16:30 Dose: 25 mg Dextrose/Water (Dextrose 50% (Syg)) 25 ml IVP AD PRN PRN Reason: Hypoglycemia Stop: 01/07/19 14:58 Glucagon (Glucagen) 1 mg IM ONCE PRN PRN Reason: Hypoglycemia Stop: 01/07/19 14:58 Glucose (Gluctose) 15 gm PO ONCE PRN PRN Reason: Hypoglycemia Stop: 01/07/19 14:58 Glucose (Gluctose) 30 gm PO ONCE PRN PRN Reason: Hypoglycemia Stop: 01/07/19 14:58 Dextrose (Dextrose 5%) 1,000 mls @ 100 mls/hr IVC .Q10H PRN PRN Reason: HYPOGLYCEMIA Stop: 01/07/19 14:58 Insulin Human Lispro (Humalog) 0 units SQ HS [facility] PRN Reason: Protocol Stop: 01/07/19 21:01 Last Admin: 07/09/18 21:17 Dose: Not Given Insulin Human Lispro (Humalog) 0 units SQ TIDAC [facility] PRN Reason: Protocol Stop: 01/07/19 16:31 Last Admin: 07/09/18 16:40 Dose: 2 units Lisinopril (Zestril) 20 mg PO DAILY [facility] PRN Reason: Protocol Stop: 01/08/19 09:01 Last Admin: 07/09/18 08:04 Dose: 20 mg Naloxone HCl (Narcan) 0.4 mg IVP Q2MIN PRN PRN Reason: SEE COMMENTS Stop: 01/07/19 14:21 Spironolactone (Aldactone) 25 mg PO DAILY [facility] Stop: 01/08/19 09:01 Last Admin: 07/09/18 08:04 Dose: 25 mg Tramadol HCl (Ultram) 50 mg PO Q6HR PRN PRN Reason: Severe Pain Stop: 01/07/19 14:21 Warfarin Sodium (Coumadin Perpt) 1 each PO DAILY@1800 PRN PRN Reason: SEE COMMENTS Stop: 01/07/19 18:01 Warfarin Sodium (Coumadin) 7.5 mg PO DAILY@1800 [facility] Stop: 01/08/19 18:01 Last Admin: 07/09/18 16:30 Dose: 7.5 mg - Imaging and Cardiology Echo: pending - EKG Interpretation EKG results cardiology: other (12 hr tele AVG HR 60, 4 beat run NSVT) Consult Discharge Plan - Plan Referrals: Krys Muller, ENTERPRISE SALES EXECUTIVE [Primary Care Provider] -
[2018-07-10] MEDS: Insulin LISPRO 300 UNITS/3 ML VIAL SQ SCH ×4 (10:08→20:38)
[2018-07-10] MEDS ORDERED: Regadenoson 0.4 MG/5 ML SYRINGE IVP ONE (10:46)
[2018-07-10] MEDS: Aspirin Enteric Coated 81 MG Tablet PO SCH (12:16)
[2018-07-10] MEDS: *HR* Amiodarone 200 MG TABLET PO SCH (12:16)
[2018-07-10] MEDS: Spironolactone 25 MG TABLET PO SCH (12:16)
[2018-07-10] MEDS: Lisinopril 20 MG TABLET PO SCH (12:16)
[2018-07-10] MEDS ORDERED: Perflutren Lipid Microsphere 1.3 ML in 0.9 % Sodium Chloride 8.7 ML IVP ONE (15:11)
[2018-07-11 05:04] LABS: INR 2.1; Prothrombin Time 23.8 Seconds (9.4-12.1)
--- NOTE | 2018-07-11 07:50 | Cardiology Progress Note ---
Date of Encounter: 07/11/18 Time of Encounter: 07:45 Assessment and Plan (1) Defibrillator discharge Current Visit: Yes Status: Acute Per Cardiology: Biotronik ICD interrogated and confirms 2 shocks--1 on 07/07 and 1 on 07/08 for VF zone arrhythmias. December 2017 was first ICD shock. Device implanted in 2010 for NICMP. Reports [facility] 2010 without intervention. Stress test: Impression: No perfusion evidence for ischemia. Medium sized, moderate-severe intensity fixed perfusion defect involving the basal to apical inferior wall associated with abnormal wall motion. Findings represent infarct. Pharmacologic stress ECG is negative for ischemia at level of heart rate achieved. No appreciable change from baseline ECG. Occasional PVCs noted during testing. Gated EF = 27%. The left ventricle is dilated. Plans for left heart catheterization once INR down. (2) Nonischemic cardiomyopathy Current Visit: Yes Status: Chronic Per Cardiology: Reportedly NICMP diagnosed in 2010, with ICD placement at that time. C in 2010 , per pt without intervention. (3) Atrial fibrillation Current Visit: No Status: Chronic Per Cardiology: Known Hx of PAF. Continue BB and Amiodarone. Currently SR. Anticoagulated on Coumadin, currently on hold for pending left heart catheterization. Current INR 2.1. Qualifiers: Atrial fibrillation type: paroxysmal Qualified Code(s): I48.0 - Paroxysmal atrial fibrillation Discussion w patient/family: The assessment and plan as outlined above was discussed with the patient and/or family members who expressed understanding and agreement. All questions were answered. Thank you for involving us in the care of your patient. Please call with any questions. Subjective Principal diagnosis: ICD shock Objective Vital Signs, Last 4 Hours Temp Pulse Resp BP Pulse Ox 07/11/18 07:08 97.6 F 60 15 116/59 98 07/11/18 04:09 97.6 F 62 18 108/73 95 Results 07/09/18 05:06 07/10/18 03:18 Lab Results 07/11/18 02:40 INR 2.1 Impressions Echocardiogram 07/09/18 09:17 Impressions: Not all LV wall segments were well visualized. Recommend repeat limited study with imaging enhancement. Severely dilated left ventricle. Normal right ventricular structure and function. Mild-moderate mitral regurgitation. Mild tricuspid regurgitation. A device lead was visualized in the right atrium and right ventricle. No evidence of PFO with agitated saline contrast. No pulmonary hypertension based on TR signal obtained. Left Ventricular Wall Motion: Rest Echo Findings The apex, apical inferior, mid inferior, basal inferior, apical anterior, mid anterior, basal anterior, apical septal, mid inferior septal, basal inferior septal, apical lateral, mid anterior lateral and basal anterior lateral luque were hypokinetic. The mid anterior septal, mid inferior lateral, basal anterior septal and basal inferior lateral luque were not visualized. Findings: Study Quality * Technically adequate exam. ECG Findings * Normal sinus rhythm. Left Ventricle * Severely dilated left ventricle. * Mild left ventricular diastolic dysfunction. * Not all LV wall segments were well visualized. Right Ventricle * Normal right ventricular structure and function. Left Atrium * Moderately dilated left atrium. Right Atrium * Normal right atrial size. Aortic Valve * No aortic regurgitation. * Trileaflet aortic valve. * No aortic stenosis. Mitral Valve * Normal mitral valve structure. * No mitral stenosis. * Mild-moderate mitral regurgitation. Tricuspid Valve * Tricuspid valve not well visualized. * Mild tricuspid regurgitation. Pulmonic Valve * Pulmonic valve is not well visualized. * No pulmonic stenosis. * No pulmonic regurgitation. Pulmonary Artery * Pulmonary artery not well visualized. Aorta * Normally sized aortic root. Pericardium * There is no pericardial effusion present. Device lead * A device lead was visualized in the right atrium and right ventricle. Interatrial Septum * No evidence of PFO by color Doppler. * No evidence of PFO with agitated saline contrast. IVC * The IVC is not well evaluated. Active Medications Acetaminophen (Tylenol) 650 mg PO Q6HR PRN PRN Reason: Mild Pain/Fever Stop: 01/07/19 14:21 Amiodarone HCl (Cordarone) 400 mg PO DAILY [facility] Stop: 01/10/19 09:01 Aspirin (Aspirin Ec) 81 mg PO DAILY [facility] Stop: 01/08/19 09:01 Last Admin: 07/10/18 12:16 Dose: 81 mg Carvedilol (Coreg) 25 mg PO BIDWM [facility] Stop: 01/08/19 17:01 Last Admin: 07/10/18 17:36 Dose: 25 mg Dextrose/Water (Dextrose 50% (Syg)) 25 ml IVP AD PRN PRN Reason: Hypoglycemia Stop: 01/07/19 14:58 Glucagon (Glucagen) 1 mg IM ONCE PRN PRN Reason: Hypoglycemia Stop: 01/07/19 14:58 Glucose (Gluctose) 15 gm PO ONCE PRN PRN Reason: Hypoglycemia Stop: 01/07/19 14:58 Glucose (Gluctose) 30 gm PO ONCE PRN PRN Reason: Hypoglycemia Stop: 01/07/19 14:58 Dextrose (Dextrose 5%) 1,000 mls @ 100 mls/hr IVC .Q10H PRN PRN Reason: HYPOGLYCEMIA Stop: 01/07/19 14:58 Insulin Human Lispro (Humalog) 0 units SQ HS [facility] PRN Reason: Protocol Stop: 01/07/19 21:01 Last Admin: 07/10/18 20:38 Dose: Not Given Insulin Human Lispro (Humalog) 0 units SQ TIDAC [facility] PRN Reason: Protocol Stop: 01/07/19 16:31 Last Admin: 07/10/18 17:36 Dose: 2 units Lisinopril (Zestril) 20 mg PO DAILY [facility] PRN Reason: Protocol Stop: 01/08/19 09:01 Last Admin: 07/10/18 12:16 Dose: 20 mg Naloxone HCl (Narcan) 0.4 mg IVP Q2MIN PRN PRN Reason: SEE COMMENTS Stop: 01/07/19 14:21 Spironolactone (Aldactone) 25 mg PO DAILY [facility] Stop: 01/08/19 09:01 Last Admin: 07/10/18 12:16 Dose: 25 mg Tramadol HCl (Ultram) 50 mg PO Q6HR PRN PRN Reason: Severe Pain Stop: 01/07/19 14:21 - Imaging and Cardiology Cardiac cath: pending - EKG Interpretation EKG results cardiology: other (Telemetry reviewed and shows average heart rate past 12 hours 62, currently heart rate in the 60s, atrial pacing, no significant ventricular tachycardia noted-- few episodes of 2-4 beat episodes of nonsustained VT) Consult Discharge Plan - Plan Referrals: Krys Muller CNP [Primary Care Provider] - 07/15/18 11:15 am
[2018-07-11] MEDS: Insulin LISPRO 300 UNITS/3 ML VIAL SQ SCH ×4 (08:00→21:08)
--- NOTE | 2018-07-11 08:13 | Internal Med Progress Note ---
Hospitalist Progress Note - Encounter Date of Encounter: 07/11/18 Time of Encounter: 10:15 - Subjective Interval History: awake, no cp, plapitations, sob presyncope or syncope. awaiting [facility] when inr permits - Exam Vitals: Temp Pulse Resp BP Pulse Ox 97.6 F 60 15 116/59 98 07/11/18 07:08 07/11/18 07:08 07/11/18 07:08 07/11/18 07:08 07/11/18 07:08 Exam: General: awake, alert, appears stated age Cardiovascular:regular rate and rhythm, normal S1 & S2, no murmurs No JVD. radial pulses 2+ and regular, no lower extremity edema Lungs:Normal breath sounds, no wheezes, or crackles. Normal respiratory effort on ra Abdomen:Soft, non-tender, non-distended, + bowel sounds Neurological: AAOx3 - Assessment and Plan (1) Defibrillator discharge Current Visit: Yes Status: Acute Assessment and Plan: device discharge x2 prior to presentation Device implanted in 2010 for NICMP. Reports last [facility] 2010 without intervention -no acute ischemic changes on ekg -trop neg -Biotronik ICD reportedly interrogated by device rep and showed VT/VF in ED -dig level low on admit -tsh wnl, rule out infectious process- ua neg, CXR unremarkable, no leukocytosis or fever -check UDS: neg -monitored lytes and repleted as needed -trend trops neg -tele -cards following--stopped digoxin. Increased Coreg to 12.5mg BID. Continued Amiodarone. -echo pending report -stress test 07/10: No perfusion evidence for ischemia. Medium sized, moderate-severe intensity fixed perfusion defect involving the basal to apical inferior wall associated with abnormal wall motion. Findings represent infarct. Pharmacologic stress ECG is negative for ischemia at level of heart rate achieved. No appreciable change from baseline ECG. Occasional PVCs noted during testing. Gated EF = 27%. The left ventricle is dilated. -given stress findings, [facility] when INR down, coumadin held beginning 07/10 evening , daily inrs, pharmacy updated to change (2) Atrial fibrillation Current Visit: No Status: Chronic Assessment and Plan: Paroxysmal afib hx no episode here -on coumadin with inr at goal on admit -now held in rep for [facility] -pharmacy updated -monitored lytes, tele -cont BB and amio -when INR <2 will cover with vte ppx (3) Diabetes mellitus Current Visit: Yes Status: Chronic Assessment and Plan: on metformin at home -will hold here -accu checks and SSI (4) Hypertension Current Visit: Yes Status: Chronic Assessment and Plan: BP mildly elevated on admit 160s sbp, now normotensive -cont meds as above cont to monitor will require outpt fu upon dc (5) Nonischemic cardiomyopathy Current Visit: Yes Status: Chronic Assessment and Plan: Reportedly NICMP diagnosed in 2010, with ICD placement at that time. C in 2010, per pt without intervention. asa, BB, ACEi. Stop digoxin as above. echo as above DVT Prophylaxis: INR >2, will cover with vte ppx when <2 - Time Spent with Patient Total time spent is greater than 50% in coordination of care (as documented) at patient's floor/unit and/or counseling patient: 25 - 35 minutes Plan of Care Discussed with: patient Internal Medicine: Result - Labs CBC & Chem 7: 07/09/18 05:06 07/10/18 03:18 - ABG Interpretation ABG results: PT/INR, D-dimer PT 23.8 Seconds (9.4-12.1) H 07/11/18 02:40 Consult Discharge Plan - Plan Referrals: Krys Muller, ANCHOR OPERATOR [Primary Care Provider] - 07/15/18 11:15 am (2) Atrial fibrillation Qualifiers: Atrial fibrillation type: paroxysmal Qualified Code(s): I48.0 - Paroxysmal atrial fibrillation (3) Diabetes mellitus Qualifiers: Diabetes mellitus type: type 2 Diabetes mellitus senior care insulin use: without termite inspector use Diabetes mellitus complication status: with unspecified complications Qualified Code(s): E11.8 - Type 2 diabetes mellitus with unspecified complications (4) Hypertension Qualifiers: Hypertension type: essential hypertension Qualified Code(s): I10 - Essential (primary) hypertension
--- NOTE | 2018-07-11 08:32 | Cardiology Progress Note ---
Date of Encounter: 07/11/18 Time of Encounter: 08:00 Assessment and Plan (1) Defibrillator discharge Current Visit: Yes Status: Acute Per Cardiology: Biotronik ICD interrogated and confirms 2 shocks--1 on 07/07 and 1 on 07/08 for VF zone arrhythmias. December 2017 was first ICD shock. Device implanted in 2010 for NICMP. Reports [facility] 2010 without intervention. Stress test: Impression: No perfusion evidence for ischemia. Medium sized, moderate-severe intensity fixed perfusion defect involving the basal to apical inferior wall associated with abnormal wall motion. Findings represent infarct. Pharmacologic stress ECG is negative for ischemia at level of heart rate achieved. No appreciable change from baseline ECG. Occasional PVCs noted during testing. Gated EF = 27%. The left ventricle is dilated. Plans for left heart catheterization once INR down. (2) Nonischemic cardiomyopathy Current Visit: Yes Status: Chronic Per Cardiology: Reportedly NICMP diagnosed in 2010, with ICD placement at that time. LHC in 2010 , per pt without intervention. Euvolemic on exam. Repeat limited echo pending. (3) Atrial fibrillation Current Visit: No Status: Chronic Per Cardiology: Known Hx of PAF. Continue BB and Amiodarone. Currently SR. Anticoagulated on Coumadin, currently on hold for pending left heart catheterization. Current INR 2.1. Qualifiers: Atrial fibrillation type: paroxysmal Qualified Code(s): I48.0 - Paroxysmal atrial fibrillation Discussion w patient/family: The assessment and plan as outlined above was discussed with the patient who expressed understanding and agreement. All questions were answered. Thank you for involving us in the care of your patient. Please call with any questions. Subjective Principal diagnosis: ICD shock Interval history: Denies any chest pain, shortness of breath, palpitations. Denies any ICD shocks. Objective Vital Signs, Last 4 Hours Temp Pulse Resp BP Pulse Ox 07/11/18 07:08 97.6 F 60 15 116/59 98 General: Conversant, No Apparent Distress HEENT: Atraumatic, Normocephaly, Mucus Membranes Moist Neck: No JVD, Normal carotid pulses Cardiac: Reg Rate and Rhythm, Normal S1 and S2, No Murmur Lungs: Normal Breath Sounds, No Wheeze, Rales, Rhonchi Neuro: Alert and responsive, No focal deficits noted Abdomen: Soft, Non-Tender Skin: No rashes noted on visualized skin Musculoskeletal: No Chest Wall Tenderness Extremities: No Clubbing, No Cyanosis, No Edema, Normal Pulses Results 07/09/18 05:06 07/10/18 03:18 Lab Results 07/11/18 02:40 INR 2.1 - Imaging and Cardiology Stress Test: report reviewed Cardiac cath: pending Consult Discharge Plan - Plan Referrals: Krys Muller CNP [Primary Care Provider] - 07/15/18 11:15 am
[2018-07-11 09:13] LABS: INR 2.1; Prothrombin Time 23.8 Seconds (9.4-12.1)
[2018-07-11] MEDS: Lisinopril 20 MG TABLET PO SCH (10:57)
[2018-07-11] MEDS: Aspirin Enteric Coated 81 MG Tablet PO SCH (10:57)
[2018-07-11] MEDS: Spironolactone 25 MG TABLET PO SCH (10:57)
[2018-07-11] MEDS: *HR* Amiodarone 200 MG TABLET PO SCH (10:57)
[2018-07-12 05:28] LABS: INR 1.8; Prothrombin Time 19.9 Seconds (9.4-12.1)
[2018-07-12 05:38] LABS: BUN/Creatinine Ratio 14 (6-26); Blood Urea Nitrogen 19 mg/dL (8-23); Calcium 9.3 mg/dL (8.6-10.3); Carbon Dioxide 25 mEq/L (23-29); Chloride 106 mEq/L (98-107); Glucose 145 mg/dL (70-105); Magnesium 1.9 mg/dL (1.6-2.6); Osmolality,Calculated 291 (280-300); Potassium 4.3 mEq/L (3.5-5.1); Sodium 138 mEq/L (136-145); eGFR For Non-African Americans 52 (> 60)
[2018-07-12] MEDS: Spironolactone 25 MG TABLET PO SCH (07:59)
[2018-07-12] MEDS: *HR* Amiodarone 200 MG TABLET PO SCH (07:59)
[2018-07-12] MEDS: Aspirin Enteric Coated 81 MG Tablet PO SCH (07:59)
[2018-07-12] MEDS ORDERED: 0.9 % Sodium Chloride 1,000 ML IVC SCH (08:00)
--- NOTE | 2018-07-12 08:00 | Internal Med Progress Note ---
Hospitalist Progress Note - Encounter Date of Encounter: 07/12/18 Time of Encounter: 09:50 - Subjective Interval History: awake, cont to have no symptoms with [facility] planned tomorrow. no cp, pressure, palpitations, presyncope or syncope. No sob - Exam Vitals: Temp Pulse Resp BP Pulse Ox 97.7 F 64 15 105/63 99 07/12/18 06:44 07/12/18 06:44 07/12/18 06:44 07/12/18 06:44 07/12/18 06:44 Exam: General: awake, alert, appears stated age Cardiovascular:regular rate and rhythm, normal S1 & S2, no murmurs No JVD. radial pulses 2+ and regular, no lower extremity edema Lungs:Normal breath sounds, no wheezes, or crackles. Normal respiratory effort on ra Abdomen:Soft, non-tender, non-distended, + bowel sounds Neurological: AAOx3 - Assessment and Plan (1) Defibrillator discharge Current Visit: Yes Status: Acute Assessment and Plan: device discharge x2 prior to presentation Device implanted in 2010 for NICMP. Reports last [facility] 2010 without intervention -no acute ischemic changes on ekg -trop neg -Biotronik ICD reportedly interrogated by device rep and showed VT/VF in ED -dig level low on admit -tsh wnl, rule out infectious process- ua neg, CXR unremarkable, no leukocytosis or fever -check UDS: neg -monitored lytes and repleted as needed -trend trops neg -tele -cards following--stopped digoxin. Increased Coreg to 12.5mg BID. Continued Amiodarone. -echo pending report -stress test 07/10: No perfusion evidence for ischemia. Medium sized, moderate-severe intensity fixed perfusion defect involving the basal to apical inferior wall associated with abnormal wall motion. Findings represent infarct. Pharmacologic stress ECG is negative for ischemia at level of heart rate achieved. No appreciable change from baseline ECG. Occasional PVCs noted during testing. Gated EF = 27%. The left ventricle is dilated. -given stress findings, LHC when INR down, coumadin held beginning 07/10 evening , daily inrs, pharmacy updated to change -07/12 inr 1.8 in prep for possible lhc and with creat increase on am labs, very gentle ivf pre procedure and dc later today for no more than 500 cc total given ef 27%, plan for 07/13 [facility], npo p mn (2) Atrial fibrillation Current Visit: No Status: Chronic Assessment and Plan: Paroxysmal afib hx no episode here -on coumadin with inr at goal on admit -now held in rep for [facility] -pharmacy updated -monitored lytes, tele -cont BB and amio -when INR <2 will cover with standard vte ppx as not in afib here (3) Diabetes mellitus Current Visit: Yes Status: Chronic Assessment and Plan: on metformin at home -will hold here -accu checks and SSI (4) Hypertension Current Visit: Yes Status: Chronic Assessment and Plan: BP mildly elevated on admit 160s sbp, now normotensive -cont meds as above -07/12 acei held for eduardo cont to monitor will require outpt fu upon dc (5) Nonischemic cardiomyopathy Current Visit: Yes Status: Chronic Assessment and Plan: Reportedly NICMP diagnosed in 2010, with ICD placement at that time. EF 27%, not in chf exacerbation [facility] in 2010, per pt without intervention. asa, BB, Stop digoxin as above. acei held 07/12 for eduardo echo as above (6) Acute kidney injury Current Visit: Yes Status: Acute Assessment and Plan: creat increase to 1.38 from 1.23 -will hold acei and spironolactone and give gentle ivfs given ef 27% in prep for pending cath -cont to monitor, no signs of urinary retention, no symptoms of uti, good uop DVT Prophylaxis: scds , heparin sq as not in arrhythmia (coumadin on hold for procedure) - Time Spent with Patient Total time spent is greater than 50% in coordination of care (as documented) at patient's floor/unit and/or counseling patient: 25 - 35 minutes Plan of Care Discussed with: patient Internal Medicine: Result - Labs CBC & Chem 7: 07/09/18 05:06 07/12/18 04:56 Labs: BMP 07/12/18 04:56 Sodium 138 Potassium 4.3 Chloride 106 Carbon Dioxide 25 BUN 19 Creatinine 1.38 H Glucose 145 H Calcium 9.3 - ABG Interpretation ABG results: PT/INR, D-dimer PT 19.9 Seconds (9.4-12.1) H 07/12/18 04:56 Consult Discharge Plan - Plan Referrals: Krys Muller BOTTOM PRECIPITATOR OPERATOR [Primary Care Provider] - 07/15/18 11:15 am (2) Atrial fibrillation Qualifiers: Atrial fibrillation type: paroxysmal Qualified Code(s): I48.0 - Paroxysmal atrial fibrillation (3) Diabetes mellitus Qualifiers: Diabetes mellitus type: type 2 Diabetes mellitus care home insulin use: without care home use Diabetes mellitus complication status: with unspecified complications Qualified Code(s): E11.8 - Type 2 diabetes mellitus with unspecified complications (4) Hypertension Qualifiers: Hypertension type: essential hypertension Qualified Code(s): I10 - Essential (primary) hypertension
[2018-07-12] MEDS: Lisinopril 20 MG TABLET PO SCH (08:01)
[2018-07-12] MEDS: Insulin LISPRO 300 UNITS/3 ML VIAL SQ SCH ×3 (08:02→16:28)
--- NOTE | 2018-07-12 08:32 | Cardiology Progress Note ---
Date of Encounter: 07/12/18 Time of Encounter: 08:30 Assessment and Plan (1) Defibrillator discharge Current Visit: Yes Status: Acute Per Cardiology: Biotronik ICD interrogated and confirms 2 shocks--1 on 07/07 and 1 on 07/08 for VF zone arrhythmias. December 2017 was first ICD shock. Device implanted in 2010 for NICMP. Reports [facility] 2010 without intervention. Stress test: Impression: No perfusion evidence for ischemia. Medium sized, moderate-severe intensity fixed perfusion defect involving the basal to apical inferior wall associated with abnormal wall motion. Findings represent infarct. Pharmacologic stress ECG is negative for ischemia at level of heart rate achieved. No appreciable change from baseline ECG. Occasional PVCs noted during testing. Gated EF = 27%. The left ventricle is dilated. Plans for left heart catheterization tomorrow. INR now 1.8. (2) Nonischemic cardiomyopathy Current Visit: Yes Status: Chronic Per Cardiology: Reportedly NICMP diagnosed in 2010, with ICD placement at that time. LHC in 2010 , per pt without intervention. Current EF 25-30%. Euvolemic on exam. (3) Atrial fibrillation Current Visit: No Status: Chronic Per Cardiology: Known Hx of PAF. Continue BB and Amiodarone. Currently SR. Anticoagulated on Coumadin, currently on hold for pending left heart catheterization. Current INR 1.8. Qualifiers: Atrial fibrillation type: paroxysmal Qualified Code(s): I48.0 - Paroxysmal atrial fibrillation Discussion w patient/family: The assessment and plan as outlined above was discussed with the patient and/or family members who expressed understanding and agreement. All questions were answered. Thank you for involving us in the care of your patient. Please call with any questions. Subjective Principal diagnosis: ICD shock Interval history: Denies any chest pain, shortness of breath, palpitations. Denies any ICD shocks. Objective Vital Signs, Last 4 Hours Temp Pulse Resp BP Pulse Ox 07/12/18 08:11 64 120/62 07/12/18 06:44 97.7 F 64 15 105/63 99 General: Conversant, No Apparent Distress HEENT: Atraumatic, Normocephaly, Mucus Membranes Moist Neck: No JVD, Normal carotid pulses Cardiac: Reg Rate and Rhythm, Normal S1 and S2, No Murmur Lungs: Normal Breath Sounds, No Wheeze, Rales, Rhonchi Neuro: Alert and responsive, No focal deficits noted Abdomen: Soft, Non-Tender Skin: No rashes noted on visualized skin Musculoskeletal: No Chest Wall Tenderness Extremities: No Clubbing, No Cyanosis, No Edema, Normal Pulses Results 07/09/18 05:06 07/12/18 04:56 Lab Results Laboratory Tests 07/11/18 07/12/18 07/12/18 02:40 04:56 04:56 INR 2.1 1.8 Creatinine 1.38 H Est GFR (Non-Af Amer) 52 L Magnesium 1.9 Impressions Echocardiogram Limited Views 07/10/18 11:05 Impressions: Technically adequate exam. Definity echo contrast was used. Severe global and segmental left ventricular systolic dysfunction. LVEF 25-30%%. Focused limited study to evaluate LV segments. See details of the study done on 07/10/2018 for other findings. Left Ventricular Wall Motion: Rest Echo Findings The apex, apical inferior, mid inferior, basal inferior, apical anterior, mid anterior, apical lateral, mid anterior lateral, basal anterior lateral and basal anterior septal luque were hypokinetic. The basal inferior septal, mid inferior lateral and basal inferior lateral luque were akinetic. The apical septal, mid inferior septal and mid anterior septal luque were dyskinetic. All other wall segments showed normal motion. Findings: Left Ventricle * Severe global and segmental left ventricular systolic dysfunction. * Definity echo contrast was used. * LVEF 25-30%%. Study Quality * Technically adequate exam. Active Medications Acetaminophen (Tylenol) 650 mg PO Q6HR PRN PRN Reason: Mild Pain/Fever Stop: 01/07/19 14:21 Amiodarone HCl (Cordarone) 400 mg PO DAILY [facility] Stop: 01/10/19 09:01 Last Admin: 07/12/18 07:59 Dose: 400 mg Aspirin (Aspirin Ec) 81 mg PO DAILY [facility] Stop: 01/08/19 09:01 Last Admin: 07/12/18 07:59 Dose: 81 mg Carvedilol (Coreg) 25 mg PO BIDWM [facility] Stop: 01/08/19 17:01 Last Admin: 07/12/18 08:01 Dose: 25 mg Dextrose/Water (Dextrose 50% (Syg)) 25 ml IVP AD PRN PRN Reason: Hypoglycemia Stop: 01/07/19 14:58 Glucagon (Glucagen) 1 mg IM ONCE PRN PRN Reason: Hypoglycemia Stop: 01/07/19 14:58 Glucose (Gluctose) 15 gm PO ONCE PRN PRN Reason: Hypoglycemia Stop: 01/07/19 14:58 Glucose (Gluctose) 30 gm PO ONCE PRN PRN Reason: Hypoglycemia Stop: 01/07/19 14:58 Dextrose (Dextrose 5%) 1,000 mls @ 100 mls/hr IVC .Q10H PRN PRN Reason: HYPOGLYCEMIA Stop: 01/07/19 14:58 Sodium Chloride (0.9 % Sodium Chloride) 1,000 mls @ 50 mls/hr IVC .Q20H AARON Stop: 07/12/18 18:00 Last Admin: 07/12/18 08:07 Dose: 50 mls/hr Insulin Human Lispro (Humalog) 0 units SQ HS AARON PRN Reason: Protocol Stop: 01/07/19 21:01 Last Admin: 07/11/18 21:08 Dose: Not Given Insulin Human Lispro (Humalog) 0 units SQ TIDAC AARON PRN Reason: Protocol Stop: 01/07/19 16:31 Last Admin: 07/12/18 08:02 Dose: Not Given Naloxone HCl (Narcan) 0.4 mg IVP Q2MIN PRN PRN Reason: SEE COMMENTS Stop: 01/07/19 14:21 Tramadol HCl (Ultram) 50 mg PO Q6HR PRN PRN Reason: Severe Pain Stop: 01/07/19 14:21 - Imaging and Cardiology Echo: report reviewed Cardiac cath: pending - EKG Interpretation EKG results cardiology: other (Telemetry reviewed the chart reviewed the past 12 hours 62, sinus rhythm, no events noted) Consult Discharge Plan - Plan Referrals: Krys Muller CNP [Primary Care Provider] - 07/15/18 11:15 am
[2018-07-12] MEDS: *HR* Heparin 5,000 UNIT/ML VIAL SQ SCH (16:28)
[2018-07-13] MEDS: Insulin LISPRO 300 UNITS/3 ML VIAL SQ SCH ×5 (01:16→21:54)
[2018-07-13] MEDS: *HR* Heparin 5,000 UNIT/ML VIAL SQ SCH ×2 (01:23→06:48)
[2018-07-13 02:00] LABS: Basophils # 0.1 K/mcL (0.0-0.2); Basophils % 0.5 %; Eosinophils # 0.5 K/mcL (0.0-0.6); Eosinophils % 5.4 %; Hematocrit 37.8 % (37.5-50.1); Hemoglobin 12.1 g/dL (12.9-16.9); Immature Granulocytes % 0.3 % (0-4); Lymphocytes # 2.7 K/mcL (0.6-4.6); Lymphocytes % 28.9 %; Mean Corpuscular Hemoglobin 27.9 pg (28.0-33.3); Mean Corpuscular Volume 87.3 fL (83.0-100.0); Mean Platelet Volume 12.1 fL (9.4-12.4); Monocytes # 0.8 K/mcL (0.0-1.3); Monocytes % 8.4 %; Neutrophils # 5.3 K/mcL (1.6-8.9); Platelet Count 195 K/mcL (140-400); Red Blood Count 4.33 M/mcL (4.19-5.50); Red Cell Distribution Width 13.5 % (11.5-14.5); Segmented Neutrophils % 56.5 %
[2018-07-13 02:06] LABS: INR 1.5; Prothrombin Time 16.5 Seconds (9.4-12.1)
[2018-07-13 02:20] LABS: BUN/Creatinine Ratio 15 (6-26); Blood Urea Nitrogen 19 mg/dL (8-23); Carbon Dioxide 25 mEq/L (23-29); Chloride 106 mEq/L (98-107); Glucose 143 mg/dL (70-105); Magnesium 1.9 mg/dL (1.6-2.6); Osmolality,Calculated 293 (280-300); Sodium 139 mEq/L (136-145); eGFR For Non-African Americans 58 (> 60)
--- NOTE | 2018-07-13 08:20 | Event Note ---
Date of Encounter: 07/13/18 Time of Encounter: 08:20 - Cardiology Event Note Laboratory Tests 07/13/18 07/13/18 01:14 01:14 INR 1.5 Creatinine 1.25 Est GFR (Non-Af Amer) 58 L For [facility] today. Will resume Coumadin after.
[2018-07-13] MEDS: *HR* Amiodarone 200 MG TABLET PO SCH (08:52)
[2018-07-13] MEDS: Aspirin Enteric Coated 81 MG Tablet PO SCH (08:52)
[2018-07-13] MEDS ORDERED: *HR* Heparin 10,000 UNIT/10 ML VIAL ONE (09:10)
[2018-07-13] MEDS ORDERED: ISOVUE-370 200 ML INFUS..BTL IV ONE (09:10)
[2018-07-13] MEDS ORDERED: Nitroglycerin 1,000 MCG/10 ML VIAL IV ONE (09:10)
[2018-07-13] MEDS ORDERED: Verapamil 5 MG/2 ML VIAL ONE (09:10)
[2018-07-13] MEDS ORDERED: Heparin 1,000 UNITS/500 mL 500 ML ONE (09:10)
[2018-07-13] MEDS ORDERED: 0.9 % Sodium Chloride 1,000 ML ONE ×2 (09:10→09:22)
--- NOTE | 2018-07-13 09:11 | Internal Med Progress Note ---
Hospitalist Progress Note - Encounter Date of Encounter: 07/13/18 Time of Encounter: 07:50 - Subjective Interval History: awake, no chest pain, pressure, sob orthopnea or le edema. awaiting [facility] - Exam Vitals: Temp Pulse Resp BP Pulse Ox 97.7 F 59 20 101/73 96 07/13/18 07:40 07/13/18 07:40 07/13/18 07:40 07/13/18 07:40 07/13/18 07:40 Exam: General: awake, alert, appears stated age Cardiovascular:regular rate and rhythm, normal S1 & S2, no murmurs No JVD. no lower extremity edema Lungs:Normal breath sounds, no wheezes, or crackles. Normal respiratory effort on ra Abdomen:Soft, non-tender, non-distended, + bowel sounds Neurological: AAOx3 Skin: no pallor, no rash - Assessment and Plan (1) Defibrillator discharge Current Visit: Yes Status: Acute Assessment and Plan: device discharge x2 prior to presentation Device implanted in 2010 for NICMP. Reports last [facility] 2010 without intervention -no acute ischemic changes on ekg -trop neg -Biotronik ICD reportedly interrogated by device rep and showed VT/VF in ED -dig level low on admit -tsh wnl, rule out infectious process- ua neg, CXR unremarkable, no leukocytosis or fever -check UDS: neg -monitored lytes and repleted as needed -trend trops neg -tele -cards following--stopped digoxin. Increased Coreg to 12.5mg BID. Continued Amiodarone. -echo pending report -stress test 07/10: No perfusion evidence for ischemia. Medium sized, moderate-severe intensity fixed perfusion defect involving the basal to apical inferior wall associated with abnormal wall motion. Findings represent infarct. Pharmacologic stress ECG is negative for ischemia at level of heart rate achieved. No appreciable change from baseline ECG. Occasional PVCs noted during testing. Gated EF = 27%. The left ventricle is dilated. -given stress findings, [facility] when INR down, coumadin held beginning 07/10 evening , daily inrs, pharmacy updated to change -07/12 inr 1.8 in prep for possible lhc and with creat increase on am labs, very gentle ivf pre procedure and dc later today for no more than 500 cc total given ef 27% -plan for 07/13 [facility] now that INR down--will fu cards recs (2) Atrial fibrillation Current Visit: No Status: Chronic Assessment and Plan: Paroxysmal afib hx no episode here -on coumadin with inr at goal on admit -now held in rep for [facility] -pharmacy updated -monitored lytes, tele -cont BB and amio -when INR <2 will cover with standard vte ppx as not in afib here -07/13 [facility] then resume coumadin (3) Diabetes mellitus Current Visit: Yes Status: Chronic Assessment and Plan: on metformin at home -will hold here -accu checks and SSI (4) Hypertension Current Visit: Yes Status: Chronic Assessment and Plan: BP mildly elevated on admit 160s sbp, now normotensive -cont meds as above -07/12 acei held for eduardo -eduardo resoled and may resume cont to monitor will require outpt fu upon dc (5) Nonischemic cardiomyopathy Current Visit: Yes Status: Chronic Assessment and Plan: Reportedly NICMP diagnosed in 2010, with ICD placement at that time. EF 27%, not in chf exacerbation [facility] in 2010, per pt without intervention. asa, BB, acei Stop digoxin echo as above (6) Acute kidney injury Current Visit: Yes Status: Resolved Assessment and Plan: creat increase to 1.38 from 1.23 resolved with gentle ivf and holding acei one day -held acei and spironolactone and give gentle ivfs given ef 27% in prep for pending cath -no signs of urinary retention, no symptoms of uti, good uop -resolved and may resume home meds post cath -cont to monitor creat post cath DVT Prophylaxis: scds today and then resume couamdin and bridge with lovenox post cath - Time Spent with Patient Total time spent is greater than 50% in coordination of care (as documented) at patient's floor/unit and/or counseling patient: 25 - 35 minutes Plan of Care Discussed with: patient Internal Medicine: Result - Labs CBC & Chem 7: 07/13/18 01:14 07/13/18 01:14 Labs: Short CBC 07/13/18 Range/Units 01:14 WBC 9.4 (4.3-11.1) K/mcL Hgb 12.1 L (12.9-16.9) g/dL Hct 37.8 (37.5-50.1) % Plt Count 195 (140-400) K/mcL Neutrophils # 5.3 (1.6-8.9) K/mcL BMP 07/13/18 01:14 Sodium 139 Potassium 4.0 Chloride 106 Carbon Dioxide 25 BUN 19 Creatinine 1.25 Glucose 143 H Calcium 9.0 Cardiac Enzymes 07/12/18 07/12/18 07/13/18 Range/Units 12:15 18:02 01:14 Troponin I < 0.03 < 0.03 < 0.03 (< 0.04) ng/mL - ABG Interpretation ABG results: PT/INR, D-dimer PT 16.5 Seconds (9.4-12.1) H 07/13/18 01:14 Consult Discharge Plan - Plan Referrals: Krys Muller, [employer] [Primary Care Provider] - 07/15/18 11:15 am (2) Atrial fibrillation Qualifiers: Atrial fibrillation type: paroxysmal Qualified Code(s): I48.0 - Paroxysmal atrial fibrillation (3) Diabetes mellitus Qualifiers: Diabetes mellitus type: type 2 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
[2018-07-13] MEDS ORDERED: *HR* Midazolam HCl 5 MG/5 ML VIAL IVP ONE (09:26)
[2018-07-13] MEDS ORDERED: *HR* FentaNYL (PF) 100 MCG/2 ML VIAL ONE (09:26)
--- NOTE | 2018-07-13 09:31 | Pre-Sedation Evaluation ---
Pre-sedation evaluation - Pre-sedation checklist Date of procedure: 07/13/18 Procedure: left heart cath Recent Vitals: Last Vital Signs Temp 97.7 F 07/13/18 07:40 Pulse 59 07/13/18 07:40 Resp 20 07/13/18 07:40 BP 101/73 07/13/18 07:40 Pulse Ox 96 07/13/18 07:40 H&P (including ROS) documented in medical record: Yes Previous reaction to sedatives/anesthetics: No Dietary Status: NPO after Midnight Dentition: No loose teeth or bridges ASA Classification *see protocol: CLASS II-Mild systemic disease Plan of Care: Pt appropriate candidate for procedure/moderate/conscious sedation , Risks/benefits of procedure/sedation discussed w/ patient/family Cardiac Registry (Cardio Only) - Functional Capacity Functional Capacity: >=4 METS with symptoms - Clincal Frailty Scale Clinical Frailty Scale: Managing Well
--- NOTE | 2018-07-13 10:11 | Event Note ---
Date of Encounter: 07/13/18 Time of Encounter: 10:10 - Cardiology Event Note Per discussion with Dr. Gonzales, no significant lesions warranting intervention. We will resume Coumadin with target INR 2.0-3.0. Cardiology signoff, reconsult as needed, follow-up arranged. Continue his current medical regimen.
--- NOTE | 2018-07-13 10:12 | Invasive Diagnostic Lab Proc ---
Name: Hemant Pate Date of Study: 07/13/2018 Date: 1955 Ht: 76.0in Medical Record#: [id number] Age: 63 Wt: 255.74lb Gender: Male BSA: 2.46 Order #: [id number] BMI: 31.14 Physicians Procedure Physician: Lucas Gonzales MD, [facility] Referring MD: Referring MD: Staff Name Position Time In [facility] RT (R) Monitor 09:31 AM Haydee Dawkins RT (R) Scrub 09:31 AM Rohit Chaudhari RN Cracker Sprayer 09:31 AM Agata Crowder RT (R) 09:31 AM Indications Indication Unstable Angina Procedures Performed Procedure L HRT ARTERY/VENTRICLE ANGIO Pre-Procedure Checklist Informed consent is complete signed and on chart. H&P is on chart. ID band is on and ID verified with patient. Patient NPO for procedure The procedure was described for the patient and questions were answered. Blood Pressure: 156/51 ECG is on chart. Rhythm: NSR Plan of Care Patient will tolerate the procedure without complications. Adequate level of comfort will be maintained. Hemodynamics will remain stable Patient will recover from procedure without complications. Respiratory function will be maintained. Cardiac rhythm will remain stable. Patient temperature will be maintained. Patient and/or family have verbalized understanding of the procedure. Patient Education Chief Complaint/Reason for Test: Cardiac Cath Developmental Category: Geriatric (65+ years) Developmentally Appropriate for Age: Yes Learning Barriers: None Education Needs: Procedure Education Method: Verbal Information Taught: Cardiac Cath Educational Evaluation: Able to repeat information Intravenous Access Time IV Size Location DC'd Fluid/Drip Rate Units RN 20g 1 10/23" Patent On Arrival Rt Antecubital 0.9NaCl 50 ml/hr Rohit Chaudhari RN Allergies Evedwvk-Mvi-Pkt Reductase Inhibitor Vital Signs Time BP (mmHg) HR (bpm) O2 Sat. RR (bpm) LOC 09:33 AM / % 5 = Fully awake and oriented or at pre-proc level 09:33 AM / % 5 = Fully awake and oriented or at pre-proc level 09:28 AM 157 / 76 66 99 % 12 09:32 AM 138 / 79 65 98 % 22 09:37 AM 134 / 73 66 99 % 10 09:42 AM 131 / 67 65 97 % 15 09:47 AM 121 / 63 69 96 % 18 09:52 AM 130 / 63 60 97 % 25 09:57 AM 126 / 67 % Procedural Medications Time Medication Dose Units Method Given By 09:31 AM Oxygen 2 L/min nasal cannula Rohit Chaudhari RN 09:31 AM Versed 2 mg Intravenous Rohit Chaudhari RN 09:31 AM Fentanyll 50 mcg Intravenous Rohit Chaudhari RN 09:40 AM Lidocaine 2% 0.5 ml Subcutaneous Lucas Gonzales MD, FACC 09:42 AM Heparin 4000 units Nitroglycerin 200 mcg Verapamil 2.5 mg Intraarterial Lucas Gonzales MD, [facility] ASA Classification: CLASS II- Mild systemic disease (i.e. well-controlled diabetes, hypertension, asthma, cigarette smoking) Greer Score Preprocedure Postprocedure Activity 2- Moves 4 extremities sustained head lift Activity 2- Moves 4 extremities sustained head lift Circulation 2- SBP +/= 20 points of pre-anesthetic level Circulation 2- SBP +/= 20 points of pre-anesthetic level Consciousness 2- Awake and alert oriented x 3 Consciousness 2- Awake and alert oriented x 3 O2 Saturation 2- Able to maintain O2 satruation of 92% on room air O2 Saturation 2- Able to maintain O2 satruation of 92% on room air Respiratory 2- Able to deep breathe and cough well Respiratory 2- Able to deep breathe and cough well Total Score 10 Total Score 10 Contrast Agent: Isovue Diagnostic Contrast: 56 ml Total Contrast: 56 ml Fluoro Dose: 5322 mGy Procedure Log Time Note Enter By 09:26 AM CathStat 09:26 AM Vitals capture started with the following parameters, Patient=Adult, Interval=5 min, Initial Ulrmbmbm=528 mmHg, Deflation Rate=5 mmHg, Cuff placed on Right Arm 09:28 AM Recorded ECG: HR=67 Condition=Condition 1 09:28 AM HR=66 bpm, QOPX=293/76 mmhg, SpO2=99 %, Resp=12 B/min 09:30 AM Pt arrived to labor/excavator 2 at 09:30 tsites 09:31 AM Haydee Hutchinson RT (R) Position: Monitor Time in: 09:31 tsites 09:31 AM Haydee Dawkins RT (R) Position: Scrub Time in: 09:31 tsites 09:31 AM Rohit Chaudhari RN Position: Cracker Sprayer Time in: 09:31 tsites 09:31 AM Agata Crowder RT (R) Position: Time in: : tsites 09:31 AM Patient charges- Angio tray pack, Navilyst 3mm J, Pulse Oximetry and ACIST tubing and transducer tsites : AM Case Delayed No tsites : AM Physician arrived : tsites 09: AM Meet and greet completed tsites :31 AM Sign in performed according to hospital policy. tsites 09:31 AM Procedure start : tsites : AM Hair removed from procedure site in holding area using clippers. Bilateral groin prepped with Chloraprep by Agaat Crowder (R), then patient was draped. Skin intact. tsites : AM Time: :31 Oxygen on at 2 L/min per nasal cannula by Rohit Chaudhari RN tsites : AM Time: :31 Versed 2 mg Intravenous Given by Rohit Chaudhari RN tsites : AM Time: 9:31 Fentanyl 50 mcg Intravenous Given by Rohit Chaudhari RN tsites 09:32 AM HR=65 bpm, EJFJ=559/79 mmhg, SpO2=98 %, Resp=22 B/min 09:33 AM Time: 09:33 Patient comfortable and pain free: Yes tsites :33 AM Time: :33LOC: 5 = Fully awake and oriented or at pre-proc level tsites :33 AM Clinical Presentation: Unstable angina tsites 09:35 AM Pressure channel 1 zeroed. 09:37 AM HR=66 bpm, SBMW=777/73 mmhg, SpO2=99.0 %, Resp=10 B/min 09:40 AM Time out performed according to hospital policy tsites : AM Time: :40 0.5 ml Lidocaine 2% to right radial Subcutaneous Given by Lucas Gonzales MD, FACC tsites 09:42 AM Access obtained by percutaneous puncture. 6Fr 10cm Terumo Glidesheath sheath placed in right Radial artery. [id number] tsites :42 AM Time: :42 Patient given 4,000 units Heparin, 200 mcg Nitroglycerin, and 2.5 mg Verapamil Intraarterial by Lucas Gonzales MD, FACC. This is given to reduce risk of vessel spasm and thrombosis. tsites 09:42 AM 5Fr TIG catheter inserted over the wire C tsites 09:42 AM HR=65 bpm, NSFB=552/67 mmhg, SpO2=97.0 %, Resp=15 B/min 09:42 AM 0.035 260cm Navilyst 3mmJ wire [id number] tsites 09:43 AM Wire removed tsites 09:44 AM LCA angiography performed in multiple views. tsites 09:44 AM Recorded Pressure: Ao, HR=62, Condition=Condition 1 (Aorta) Ao 73/53/63 09:46 AM Pressure channel 1 zeroed. 09:46 AM Lesion found in Proximal LMCA. Pre Stenosis: 15 Pre MOISES Flow: tsites 09:47 AM HR=69 bpm, IERO=926/63 mmhg, SpO2=96.0 %, Resp=18 B/min 09:48 AM Recorded Pressure: Ao, HR=63, Condition=Condition 1 (Aorta) Ao 100/75/88 09:48 AM Coronary Dominance: Left tsites 09:48 AM Left Main Coronary Artery with 15% stenosis tsites 09:48 AM Time: 09:33LOC: 5 = Fully awake and oriented or at pre-proc level tsites 09:48 AM Time: 09:33 Patient comfortable and pain free: Yes tsites 09:48 AM wire reinserted catheter removed tsites 09:49 AM 5Fr Pigtail catheter inserted over the wire DNC tsites 09:49 AM Catheter selectively placed in left ventricle tsites 09:51 AM Recorded Pressure: LV, HR=63, Condition=Condition 1 (Left Ventricle) LV 114/11/16 09:52 AM Bolus angiogram of left Ventricle complete: 10 ml/sec for a total of 30 mls tsites 09:52 AM HR=60 bpm, YGEL=607/63 mmhg, SpO2=97.0 %, Resp=25 B/min 09:52 AM Recorded Pressure: LV, Ao, HR=63, Condition=Condition 1 (Left Ventricle) LV 120/14/16, (Aorta) Ao 121/68/93 09:53 AM wire reinserted catheter removed tsites 09:53 AM Procedure completed at 09:53 07/13/2018 tsites 09:53 AM Did you address MOISES flow and Dominance? Yes tsites 09:53 AM Sign out completed: Radiation Dose 492 mGy, 5322 cGy/cm2 Fluoro Time: 3.8 Isovue 370 - 200ml contrast 56 ml given by Lucas Gonzales MD, FACC. Complications: NoneCardiac Rehab Consult needed: NoConfirmed administered medications: Yes tsites 09:53 AM Isovue 370 - 200ml,1 Bottle(s) used. tsites 09:53 AM Arterial sheath pulled, Vasc Band closure device used and was Successful S/N. tsites 09:53 AM 9 ml air in Vasc Band. tsites 09:54 AM Estimated Blood Loss: minimal tsites 09:54 AM Post ECG NSR tsites 09:54 AM Post Blood Pressure 130/63 tsites 09:54 AM 09:54 Post Pulses Rt Radial 1+ tsites 09:54 AM Information taught Cardiac Cath and Vasc Band tsites 09:54 AM Education needs Procedure, Plan of Care, and Responsibilities of Patient in Care tsites 09:55 AM Learning barriers :None tsites 09:55 AM Education Methods Verbal tsites 09:55 AM Education evaluation Able to repeat information tsites 09:55 AM Site status No bleeding/hematoma - Rt Wrist as reported by Haydee Dawkins RT (R) at 09:55 tsites 09:57 AM Report given to raffi SPENCER Pt taken to 2NE Room #16. 09:57 tsites 09:57 AM Delay to floor No tsites 09:57 AM Patient out of room: 09:57 tsites 09:57 AM Family placed in consult room. tsites 09:57 AM CAFZ=793/67 mmhg Complications Complication None Hemodynamics Pressures Site Systolic/A Wave Diastolic/V Wave Mean AO 73 53 63 AO 100 75 88 LV 114 11 16 LV 120 14 16 AO 121 68 93 Post Procedure Information Blood Pressure: 130/63 mmHg Rhythm: NSR Post procedural instructions were given Closure Device Time Device Success/Fail 07/13/2018 10:01:00 AM Mechanical Compression Successful Site Checks Time Location Status Staff Sheath In? Note 09:55 AM Rt Wrist No bleeding/hematoma Haydee Dawkins RT (R) Pulses Time Site Pre-Procedure Post-Procedure Note Bilateral DP & PT 2+ Bilateral radial 2+ 9:54:00 AM Rt Radial 1+ Updated by Haydee Hutchinson RT (R) on 07/13/2018 10:03:18 AM RT Neisha electronically signed on 07/13/2018 10:03:57 AM with status of Final
[2018-07-13] MEDS: Spironolactone 25 MG TABLET PO SCH (11:36)
--- NOTE | 2018-07-13 17:23 | Electrocardiograph Report ---
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
[2018-07-13] MEDS ORDERED: Warfarin perPT PO PRN (18:00)
[2018-07-13] MEDS ORDERED: *HR* Warfarin 7.5 MG TABLET PO SCH (18:00)
[2018-07-13] MEDS: *HR* Enoxaparin 120 MG/0.8 ML SYRINGE SQ SCH (18:13)
[2018-07-14] MEDS: *HR* Enoxaparin 120 MG/0.8 ML SYRINGE SQ SCH ×2 (03:56→17:01)
[2018-07-14 04:45] LABS: INR 1.3; Prothrombin Time 14.5 Seconds (9.4-12.1)
[2018-07-14 05:02] LABS: BUN/Creatinine Ratio 13 (6-26); Blood Urea Nitrogen 16 mg/dL (8-23); Calcium 9.1 mg/dL (8.6-10.3); Carbon Dioxide 23 mEq/L (23-29); Chloride 107 mEq/L (98-107); Glucose 116 mg/dL (70-105); Osmolality,Calculated 288 (280-300); Potassium 4.2 mEq/L (3.5-5.1); Sodium 138 mEq/L (136-145); eGFR For Non-African Americans 59 (> 60)
[2018-07-14] MEDS: Insulin LISPRO 300 UNITS/3 ML VIAL SQ SCH ×4 (07:51→20:41)
[2018-07-14] MEDS: Lisinopril 20 MG TABLET PO SCH (07:53)
[2018-07-14] MEDS: *HR* Amiodarone 200 MG TABLET PO SCH (07:54)
[2018-07-14] MEDS: Aspirin Enteric Coated 81 MG Tablet PO SCH (07:54)
[2018-07-14] MEDS: Spironolactone 25 MG TABLET PO SCH (07:54)
[2018-07-14] MEDS ORDERED: *HR* Warfarin 10 MG TABLET PO ONE (18:00)
--- NOTE | 2018-07-14 22:17 | Internal Med Progress Note ---
Hospitalist Progress Note - Encounter Date of Encounter: 07/14/18 Time of Encounter: 19:00 - Subjective Interval History: SUBJECTIVE: The patient feels pretty good. Denies chest pain. Denies difficulty breathing , coughing and wheezing. Denies abdominal pain, nausea and vomiting. She makes good amounts of urine. We have not observed any significant cardiac arrhythmia presently. He experienced his defibrillator discharge before this admission. OBJECTIVE: Skin: Free of rash and discoloration. ENMT: Oral/pharyngeal mucosa is normal in appearance. Eyes: Sclera is white. There is no discharge from eyes. Respiratory: Normal breath sounds; no crackles or wheezes. CV: Heart is regular; no gallop or murmur. GI: Abdomen is soft and not tender. There is no palpable mass or visceromegaly. Neuro: There is no focal deficits. ASSESSMENT AND PLAN: Defibrillator discharging the patient with nonischemic cardiomyopathy (ejection fraction of 2530%) and atrial fibrillation. The patient is on increased dose of Coreg. He had cardiac catheterization the recently. It did not show any significant or lesions to open. We will continue amiodarone, carvedilol and lisinopril. His pro time is subtherapeutic. We are hoping it would be therapeutic tomorrow. Type 2 diabetes mellitus. On diabetic diet. Taking care when necessary Humalog. He will be discharged home on metformin. Hypertension. Under control. He is on lisinopril. DISPOSITION: We are hoping to discharge him home tomorrow. - Exam Vitals: Temp Pulse Resp BP Pulse Ox 97.9 F 84 19 119/79 97 07/14/18 16:33 07/14/18 16:33 07/14/18 16:33 07/14/18 16:33 07/14/18 16:33 Exam: xx - Assessment and Plan (1) Defibrillator discharge Current Visit: Yes Status: Acute (2) Atrial fibrillation Current Visit: No Status: Chronic (3) Nonischemic cardiomyopathy Current Visit: Yes Status: Chronic (4) Diabetes mellitus Current Visit: Yes Status: Chronic (5) Hypertension Current Visit: Yes Status: Chronic - Time Spent with Patient Total time spent is greater than 50% in coordination of care (as documented) at patient's floor/unit and/or counseling patient: 25 - 35 minutes Plan of Care Discussed with: patient Internal Medicine: Result - Labs CBC & Chem 7: 07/13/18 01:14 07/14/18 04:02 Labs: BMP 07/14/18 04:02 Sodium 138 Potassium 4.2 Chloride 107 Carbon Dioxide 23 BUN 16 Creatinine 1.24 Glucose 116 H Calcium 9.1 - ABG Interpretation ABG results: PT/INR, D-dimer PT 14.5 Seconds (9.4-12.1) H 07/14/18 04:02 Consult Discharge Plan - Plan Referrals: Krys Muller, [employer]ER [Primary Care Provider] - 07/21/18 2:30 pm (2) Atrial fibrillation Qualifiers: Atrial fibrillation type: paroxysmal Qualified Code(s): I48.0 - Paroxysmal atrial fibrillation (4) Diabetes mellitus Qualifiers: Diabetes mellitus type: type 2 Diabetes mellitus terminal operator insulin use: without terminal operator use Diabetes mellitus complication status: with unspecified complications Qualified Code(s): E11.8 - Type 2 diabetes mellitus with unspecified complications (5) Hypertension Qualifiers: Hypertension type: essential hypertension Qualified Code(s): I10 - Essential (primary) hypertension
[2018-07-15 05:19] LABS: INR 1.2; Prothrombin Time 13.5 Seconds (9.4-12.1)
[2018-07-15] MEDS: *HR* Enoxaparin 120 MG/0.8 ML SYRINGE SQ SCH (05:46)
[2018-07-15] MEDS: Spironolactone 25 MG TABLET PO SCH (08:48)
[2018-07-15] MEDS: *HR* Amiodarone 200 MG TABLET PO SCH (08:48)
[2018-07-15] MEDS: Lisinopril 20 MG TABLET PO SCH (08:48)
[2018-07-15] MEDS: Insulin LISPRO 300 UNITS/3 ML VIAL SQ SCH ×2 (08:49→11:31)
[2018-07-15] MEDS: Aspirin Enteric Coated 81 MG Tablet PO SCH (08:49)
[2018-07-15 11:15] VITALS: BP 107/56
[2018-07-15] MEDS ORDERED: *HR* Warfarin 10 MG TABLET PO ONE (14:00)
--- NOTE | 2018-07-15 14:28 | Discharge Summary ---
Orders not resulted at time of discharge: Pending orders 07/13/18 10:00 CL Cardiac Catheterization [CL] Routine 07/16/18 04:00 PT/INR [Prothrombin Time INR] [COAG] AM 0400 07/17/18 04:00 PT/INR [Prothrombin Time INR] [COAG] AM 0400 Date of Encounter: 07/15/18 Time of Encounter: 14:21 - Discharge Diagnosis (1) Defibrillator discharge Priority: Primary Status: Acute (2) Atrial fibrillation Priority: Secondary Status: Chronic Qualifiers: Atrial fibrillation type: paroxysmal Qualified Code(s): I48.0 - Paroxysmal atrial fibrillation (3) Nonischemic cardiomyopathy Priority: Secondary Status: Chronic (4) Diabetes mellitus Priority: Secondary Status: Chronic Qualifiers: Diabetes mellitus type: type 2 Diabetes mellitus retirement insulin use: without 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 He does carry AICD. He experienced the AICD discharge before this admission. The device was interrogated. Cardiology was consulted. The patient underwent cardiac catheterization; did not have any obstructive coronary artery disease. His dose of Coreg was increased from 12.5 mg by mouth twice a day to 25 mg by mouth twice a day. His digoxin was put on hold. His left ventricular ejection fraction is 2530%. CONDITION AT DISCHARGE: He feels good. He has no problems with ambulation, as long as his walking is relatively slow. Denies resting chest pain/difficulty breathing. Skin: Free of rash and discoloration. Respiratory: Normal breath sounds with no crackles and wheezes bilaterally. CV: Heart is regular with no gallop or murmur. GI: Abdomen is flat and soft with no palpable mass or visceromegaly. Neuro exam: There is no focal deficits. Normal speech, swallowing and gait. SEE DISCHARGE ORDERS/MEDICATIONS.. His pro time INR is subtherapeutic. He got 10 injections of subcutaneous Lovenox for bridging. He will continue his previous dose of warfarin. - Time Spent with Patient Total time spent providing and/or coordinating discharge services: Greater than 30 minutes (45 minutes) - Discharge Medications Prescriptions: Enoxaparin [Lovenox] 120 mg SQ Q12HR #10 syr Carvedilol [Coreg] 25 mg PO BIDWM #60 tablet Home Medications: Amiodarone [Cordarone] 200 mg PO DAILY 07/08/18 [History] Aspirin Enteric Coated [Aspirin EC] 81 mg PO DAILY 07/08/18 [History] Lisinopril [Zestril] 20 mg PO DAILY 07/08/18 [History] Metformin HCl [Glucophage] 1,000 mg PO BID 07/08/18 [History] Spironolactone [Aldactone] 25 mg PO DAILY 07/08/18 [History] Warfarin [Coumadin] 7.5 mg PO DAILY 07/08/18 [History] Carvedilol [Coreg] 25 mg PO BIDWM #60 tablet 07/15/18 [Rx] Enoxaparin [Lovenox] 120 mg SQ Q12HR #10 syr 07/15/18 [Rx] Allergies/Adverse Reactions: 3 Allergy/AdvReac Type Severity Reaction Status Date / Time [id number] Reductase Allergy Hives Verified 07/08/18 10:08 Inhibitor [Statins] Date of admission: 07/10/18 14:18 Primary care physician: Krys Muller - Constitutional Vitals: Temp Pulse Resp BP Pulse Ox 98.0 F 58 20 107/56 97 07/15/18 11:09 07/15/18 11:09 07/15/18 11:09 07/15/18 11:09 07/15/18 11:09 General appearance: Present: A&O X 3, no acute distress, answers questions appropriately Exam: xx - Patient Status Disposition: Home, Self-Care Condition: Good Functional capacity at discharge: independent ambulation - Discharge Instructions Instructions: Warfarin (By mouth), Enoxaparin (Injection), Carvedilol (By mouth ), Chest Pain (DC) Follow Up With: Krys Muller CNP [Primary Care Provider] - 07/21/18 2:30 pm Max Lovett CNP [Advanced Practice Nurse] - (office will call patient at home with appointment date and time) Additional Instructions: PRO TIME TESTING -- ROUTINE; START IN 2 DAYS.. fOLLOW-UP WITH CARDIOLOGY IN 1-2 WEEKS.. - Diet and Activity Activity: resume usual activities as tolerated Diet: diabetic diet - VTE Reasons for not Prescribing Prophylaxis: Not indicated-Anticoagulated or INR therapeutic Deep Vein Thrombosis/Pulmonary Embolism Present on Admission: No
== END 2018-07-15 15:39 | disposition home or self-care (01) | DRG 287 ==
LOC: EMEROOARM 09:44 → 2NENU 09:44 → SUATTDRO 16:47 → 2NENU 17:40 → SUATTDRO 07-10 14:18
PROVIDERS: ADMIT Internal Medicine; ATTEND Internal Medicine

== ENCOUNTER 2020-05-04 18:56 | Inpatient (IN) ==
[2020-05-04] MEDS ORDERED: Naloxone 0.4 MG/ML INJ IVP PRN (23:32)
[2020-05-04] MEDS ORDERED: Acetaminophen 325 MG TABLET PO PRN (23:48)
[2020-05-04] MEDS ORDERED: Dextrose Gel 15 GM/37.5 ML TUBE PO PRN ×2 (23:54)
[2020-05-04] MEDS ORDERED: *HR* Dextrose 50 % in Water (Vial) 50 ML VIAL IVP PRN (23:54)
[2020-05-04] MEDS ORDERED: D5% in Water 1,000 ML IVC PRN (23:54)
[2020-05-05] MEDS: cefTRIAXone 1,000 MG in Water for inj. (sterile) 10 ML IVP SCH (00:07)
[2020-05-05] MEDS: Insulin LISPRO 300 UNITS/3 ML VIAL SQ SCH ×5 (00:11→21:41)
[2020-05-05] MEDS ORDERED: 0.9 % Sodium Chloride 1,000 ML IVC SCH (00:15)
[2020-05-05 01:04] LABS: Basophils % 0.1 %; Hematocrit 38.2 % (37.5-50.1); Hemoglobin 11.9 g/dL (12.9-16.9); Immature Granulocytes % 0.8 % (0-4); Lymphocytes # 0.8 K/mcL (0.6-4.6); Lymphocytes % 4.2 %; Mean Corpuscular HGB Conc 31.2 g/dL (31.6-35.5); Mean Corpuscular Hemoglobin 28.4 pg (28.0-33.3); Mean Corpuscular Volume 91.2 fL (83.0-100.0); Mean Platelet Volume 12.8 fL (9.4-12.4); Monocytes # 1.4 K/mcL (0.0-1.3); Monocytes % 7.1 %; Neutrophils # 17.4 K/mcL (1.6-8.9); Platelet Count 143 K/mcL (140-400); Red Blood Count 4.19 M/mcL (4.19-5.50); Red Cell Distribution Width 13.4 % (11.5-14.5); Segmented Neutrophils % 87.8 %; White Blood Count 19.9 K/mcL (4.3-11.1)
[2020-05-05 01:08] LABS: INR 2.6; Prothrombin Time 29.7 Seconds (9.4-12.1)
[2020-05-05 01:09] LABS: INR 2.6; Prothrombin Time 29.9 Seconds (9.4-12.1)
[2020-05-05 01:11] LABS: Activated Partial Thrombo Time 40.2 Seconds (26.0-36.0)
[2020-05-05 01:21] LABS: Albumin/Globulin Ratio 1.7 (1.1-2.2); Bilirubin,Total 1.8 mg/dL (0.3-1.0); Calcium 8.4 mg/dL (8.6-10.3); Globulin 2.4 g/dL (2.4-3.5); Magnesium 1.4 mg/dL (1.6-2.6); Phosphorous 2.3 mg/dL (2.7-4.5); Potassium 4.1 mEq/L (3.5-5.1); Total Protein 6.4 g/dL (6.4-8.9)
[2020-05-05 04:56] LABS: Bacteria,Urine Moderate per hpf (None-Few); Bilirubin,Urine Negative (Negative); Blood,Urine Moderate (Negative); Calcium Oxalate Crystals,Urine Present; Clarity,Urine Turbid (Clear); Color,Urine Yellow (Yellow); Glucose,Urine (UA) Normal (Normal); Ketones,Urine Negative (Negative); Leukocyte Esterase,Urine Moderate (Negative); Mucus,Urine Few per lpf (None-Few); Nitrite,Urine Negative (Negative); PH,Urine 5.5 pH Units (5.0-8.0); Protein,Urine 70 mg/dL (Neg-Trace); RBC,Urine TNTC per hpf (0-3); Specific Gravity,Urine 1.024 (1.010-1.025); Squamous Epithelial Cell,Urine Few per hpf (None-Few); Transitional Epi Cells,Urine Few per hpf (None-Few); Urobilinogen,Urine Normal (Normal); WBC,Urine 50-100 per hpf (0-3)
[2020-05-05] MEDS ORDERED: Spironolactone 25 MG TABLET PO SCH (09:00)
[2020-05-05] MEDS: Aspirin Enteric Coated 81 MG Tablet PO SCH (09:09)
[2020-05-05] MEDS: *HR* Amiodarone 200 MG TABLET PO SCH (09:09)
[2020-05-05] MEDS: carvediloL 25 MG TABLET PO SCH ×2 (09:09→17:45)
[2020-05-05] MEDS: Sacubitril/Valsartan 24/26 MG 1 TABLET PO SCH ×2 (09:09→21:43)
[2020-05-05] MEDS: Azithromycin 500 MG in 0.9 % Sodium Chloride 250 ML IVPB SCH (09:10)
[2020-05-05 09:50] LABS: Estimated Average Glucose 140 mg/dl; Hemoglobin A1C 6.5 %
[2020-05-05] MEDS ORDERED: Warfarin perPT PO PRN (18:00)
[2020-05-05] MEDS ORDERED: *HR* Warfarin 7.5 MG TABLET PO ONE (18:00)
[2020-05-05] MEDS: Ipratropium/Albuterol Neb 3 ML IH PRN (18:11)
[2020-05-05] MEDS: Insulin DETEMIR 100 UNIT/ML X5UNITS SQ SCH (21:41)
[2020-05-06] MEDS: cefTRIAXone 1,000 MG in Water for inj. (sterile) 10 ML IVP SCH ×2 (00:21→23:08)
[2020-05-06 07:02] LABS: Basophils % 0.3 %; Eosinophils % 0.2 %; Hematocrit 37.5 % (37.5-50.1); Hemoglobin 11.5 g/dL (12.9-16.9); INR 2.3; Immature Granulocytes % 0.4 % (0-4); Lymphocytes # 0.7 K/mcL (0.6-4.6); Mean Corpuscular HGB Conc 30.7 g/dL (31.6-35.5); Mean Corpuscular Volume 91.5 fL (83.0-100.0); Mean Platelet Volume 12.9 fL (9.4-12.4); Monocytes # 0.8 K/mcL (0.0-1.3); Monocytes % 5.6 %; Neutrophils # 11.9 K/mcL (1.6-8.9); Platelet Count 130 K/mcL (140-400); Prothrombin Time 26.5 Seconds (9.4-12.1); Red Cell Distribution Width 13.3 % (11.5-14.5); Segmented Neutrophils % 88.5 %; White Blood Count 13.5 K/mcL (4.3-11.1)
[2020-05-06 07:18] LABS: BUN/Creatinine Ratio 15 (6-26); Blood Urea Nitrogen 21 mg/dL (8-23); Calcium 8.3 mg/dL (8.6-10.3); Carbon Dioxide 21 mEq/L (23-29); Chloride 104 mEq/L (98-107); Glucose 119 mg/dL (70-105); Osmolality,Calculated 284 (280-300); Potassium 4.2 mEq/L (3.5-5.1); Sodium 135 mEq/L (136-145); eGFR For African Americans > 60 (> 60); eGFR For Non-African Americans 52 (> 60)
[2020-05-06] MEDS: Insulin LISPRO 300 UNITS/3 ML VIAL SQ SCH ×4 (09:31→20:14)
[2020-05-06] MEDS: Sacubitril/Valsartan 24/26 MG 1 TABLET PO SCH ×2 (09:36→20:14)
[2020-05-06] MEDS: carvediloL 25 MG TABLET PO SCH ×2 (09:36→17:35)
[2020-05-06] MEDS: Azithromycin 500 MG in 0.9 % Sodium Chloride 250 ML IVPB SCH (09:37)
[2020-05-06] MEDS: Aspirin Enteric Coated 81 MG Tablet PO SCH (09:37)
[2020-05-06] MEDS: *HR* Amiodarone 200 MG TABLET PO SCH (09:37)
[2020-05-06] MEDS: Ipratropium/Albuterol Neb 3 ML IH PRN (09:43)
[2020-05-06] MEDS ORDERED: *HR* Warfarin 7.5 MG TABLET PO ONE (18:00)
[2020-05-06] MEDS: Insulin DETEMIR 100 UNIT/ML X5UNITS SQ SCH (20:13)
[2020-05-07] MEDS: Ipratropium/Albuterol Neb 3 ML IH PRN (01:52)
[2020-05-07 02:58] LABS: INR 2.1; Prothrombin Time 24.3 Seconds (9.4-12.1)
[2020-05-07 03:14] LABS: Calcium 8.5 mg/dL (8.6-10.3)
[2020-05-07 07:10] VITALS: BP 108/65
[2020-05-07] MEDS: carvediloL 25 MG TABLET PO SCH (07:52)
[2020-05-07] MEDS: Sacubitril/Valsartan 24/26 MG 1 TABLET PO SCH (07:52)
[2020-05-07] MEDS: Aspirin Enteric Coated 81 MG Tablet PO SCH (07:53)
[2020-05-07] MEDS: *HR* Amiodarone 200 MG TABLET PO SCH (07:54)
[2020-05-07] MEDS: Azithromycin 500 MG in 0.9 % Sodium Chloride 250 ML IVPB SCH (07:54)
[2020-05-07] MEDS: Insulin LISPRO 300 UNITS/3 ML VIAL SQ SCH (07:57)
[2020-05-07] MEDS ORDERED: Furosemide 40 MG/4 ML VIAL IVP ONE (09:14)
[2020-05-07] MEDS ORDERED: predniSONE 20 MG TABLET PO ONE (09:16)
[2020-05-07] MEDS ORDERED: Anticoagulation Consult 1 Each MC ONE (14:14)
[2020-05-07] MEDS ORDERED: *HR* Warfarin 10 MG TABLET PO ONE (18:00)
[2020-05-08 18:24] LABS: Metanephrine, Plasma 0.26 nmol/L (0.00-0.49)
== END 2020-05-07 14:15 | disposition home or self-care (01) | DRG 871 ==
LOC: 3ANU → SUATTDRO 21:58
PROVIDERS: ADMIT Internal Medicine; ATTEND Student in an Organized Health Care Education/Training Program

== ENCOUNTER 2021-05-10 10:25 | Inpatient (IN) ==
[2021-05-10] MEDS ORDERED: Ipratropium/Albuterol Neb 3 ML IH ONE (11:03)
[2021-05-10] MEDS ORDERED: Aspirin 325 MG TABLET PO ONE (11:04)
[2021-05-10 11:31] LABS: Basophils # 0.1 K/mcL (0.0-0.2); Basophils % 0.8 %; Eosinophils # 0.1 K/mcL (0.0-0.6); Eosinophils % 1.8 %; Hematocrit 40.1 % (37.5-50.1); Immature Granulocytes % 0.4 % (0-4); Immature Platelets 11.5 % (1.1-6.1); Lymphocytes # 1.5 K/mcL (0.6-4.6); Lymphocytes % 18.6 %; Mean Corpuscular HGB Conc 29.9 g/dL (31.6-35.5); Mean Corpuscular Hemoglobin 27.1 pg (28.0-33.3); Mean Corpuscular Volume 90.7 fL (83.0-100.0); Mean Platelet Volume 12.7 fL (9.4-12.4); Monocytes # 0.4 K/mcL (0.0-1.3); Monocytes % 5.6 %; Neutrophils # 5.7 K/mcL (1.6-8.9); Platelet Count 205 K/mcL (140-400); Red Blood Count 4.42 M/mcL (4.19-5.50); Red Cell Distribution Width 14.6 % (11.5-14.5); Segmented Neutrophils % 72.8 %; White Blood Count 7.8 K/mcL (4.3-11.1)
[2021-05-10 11:34] LABS: INR 3.2; Prothrombin Time 35.7 Seconds (9.4-12.1)
[2021-05-10 11:46] LABS: BUN/Creatinine Ratio 13 (6-26); Blood Urea Nitrogen 18 mg/dL (8-23); Calcium 9.4 mg/dL (8.6-10.3); Carbon Dioxide 24 mEq/L (23-29); Chloride 106 mEq/L (98-107); Glucose 146 mg/dL (70-105); Osmolality,Calculated 295 (280-300); Potassium 4.3 mEq/L (3.5-5.1); Sodium 140 mEq/L (136-145); Troponin I < 0.03 ng/mL (< 0.04); eGFR For African Americans > 60 (> 60); eGFR For Non-African Americans 53 (> 60)
[2021-05-10] MEDS ORDERED: Furosemide 20 MG/2 ML VIAL IVP ONE (12:15)
[2021-05-10 12:56] LABS: Bilirubin,Urine Negative (Negative); Blood,Urine Negative (Negative); Clarity,Urine Clear (Clear); Color,Urine Yellow (Yellow); Glucose,Urine (UA) Normal (Normal); Hyaline Casts,Urine Few per lpf (None Seen); Ketones,Urine Negative (Negative); Leukocyte Esterase,Urine Negative (Negative); Mucus,Urine Few per lpf (None-Few); Nitrite,Urine Negative (Negative); PH,Urine 5.5 pH Units (5.0-8.0); Protein,Urine 50 mg/dL (Neg-Trace); RBC,Urine 0-3 per hpf (0-3); Specific Gravity,Urine 1.026 (1.010-1.025); Squamous Epithelial Cell,Urine Few per hpf (None-Few); Urobilinogen,Urine Normal (Normal); WBC,Urine 0-3 per hpf (0-3)
[2021-05-10] MEDS ORDERED: Ondansetron 4 MG/2 ML VIAL IVP PRN (13:08)
[2021-05-10] MEDS ORDERED: Naloxone 0.4 MG/ML INJ IVP PRN (13:08)
[2021-05-10] MEDS ORDERED: *HR* Dextrose 50 % in Water (Vial) 50 ML VIAL IVP PRN (13:10)
[2021-05-10] MEDS ORDERED: Dextrose Gel 15 GM/37.5 ML TUBE PO PRN ×2 (13:10)
[2021-05-10] MEDS ORDERED: D5% in Water 1,000 ML IVC PRN (13:10)
[2021-05-10] MEDS ORDERED: Perflutren Lipid Microsphere 1.3 ML in 0.9 % Sodium Chloride 8.7 ML IVP PRN (13:11)
[2021-05-10] MEDS: Insulin LISPRO 300 UNITS/3 ML VIAL SUBQ SCH (17:11)
[2021-05-10] MEDS: Furosemide 20 MG/2 ML VIAL IVP SCH (17:28)
[2021-05-10] MEDS ORDERED: *HR* Warfarin 2.5 MG TABLET PO ONE (18:00)
[2021-05-10] MEDS ORDERED: Warfarin perPT PO PRN (18:00)
[2021-05-11 06:47] LABS: Basophils # 0.1 K/mcL (0.0-0.2); Basophils % 0.8 %; Eosinophils # 0.3 K/mcL (0.0-0.6); Eosinophils % 3.3 %; Hematocrit 37.6 % (37.5-50.1); Hemoglobin 11.2 g/dL (12.9-16.9); Immature Granulocytes % 0.1 % (0-4); Lymphocytes % 26.3 %; Mean Corpuscular HGB Conc 29.8 g/dL (31.6-35.5); Mean Corpuscular Hemoglobin 26.5 pg (28.0-33.3); Mean Corpuscular Volume 89.1 fL (83.0-100.0); Mean Platelet Volume 12.7 fL (9.4-12.4); Monocytes # 0.6 K/mcL (0.0-1.3); Monocytes % 7.7 %; Neutrophils # 4.8 K/mcL (1.6-8.9); Platelet Count 188 K/mcL (140-400); Red Blood Count 4.22 M/mcL (4.19-5.50); Red Cell Distribution Width 14.3 % (11.5-14.5); Segmented Neutrophils % 61.8 %; White Blood Count 7.8 K/mcL (4.3-11.1)
[2021-05-11 06:59] LABS: INR 3.4; Prothrombin Time 38.1 Seconds (9.4-12.1)
[2021-05-11 07:06] LABS: BUN/Creatinine Ratio 13 (6-26); Blood Urea Nitrogen 16 mg/dL (8-23); Calcium 8.9 mg/dL (8.6-10.3); Carbon Dioxide 23 mEq/L (23-29); Chloride 106 mEq/L (98-107); Glucose 106 mg/dL (70-105); Osmolality,Calculated 290 (280-300); Potassium 3.9 mEq/L (3.5-5.1); Sodium 139 mEq/L (136-145); eGFR For African Americans > 60 (> 60); eGFR For Non-African Americans 57 (> 60)
[2021-05-11] MEDS: Insulin LISPRO 300 UNITS/3 ML VIAL SUBQ SCH ×3 (09:01→16:25)
[2021-05-11] MEDS: Furosemide 20 MG/2 ML VIAL IVP SCH ×2 (09:02→16:30)
[2021-05-11] MEDS: Sacubitril/Valsartan 24/26 MG 1 TABLET PO SCH ×2 (10:31→22:42)
[2021-05-11] MEDS: Aspirin Enteric Coated 81 MG Tablet PO SCH (10:31)
[2021-05-11] MEDS: *HR* Amiodarone 200 MG TABLET PO SCH (10:31)
[2021-05-11] MEDS: Spironolactone 25 MG TABLET PO SCH (10:31)
[2021-05-11] MEDS: (Ezetimibe [Zetia] 10 MG Tablet) PO SCH (10:32)
[2021-05-11] MEDS: carvediloL 25 MG TABLET PO SCH (16:30)
[2021-05-12 01:16] LABS: INR 3.2; Prothrombin Time 35.8 Seconds (9.4-12.1)
[2021-05-12 01:33] LABS: BUN/Creatinine Ratio 15 (6-26); Blood Urea Nitrogen 21 mg/dL (8-23); Calcium 8.8 mg/dL (8.6-10.3); Carbon Dioxide 23 mEq/L (23-29); Chloride 107 mEq/L (98-107); Glucose 121 mg/dL (70-105); Magnesium 1.8 mg/dL (1.6-2.6); Osmolality,Calculated 294 (280-300); Phosphorous 4.5 mg/dL (2.7-4.5); Potassium 3.8 mEq/L (3.5-5.1); Sodium 140 mEq/L (136-145); eGFR For African Americans > 60 (> 60); eGFR For Non-African Americans 52 (> 60)
[2021-05-12] MEDS: Insulin LISPRO 300 UNITS/3 ML VIAL SUBQ SCH ×3 (07:44→16:40)
[2021-05-12] MEDS: (Ezetimibe [Zetia] 10 MG Tablet) PO SCH (07:45)
[2021-05-12] MEDS: Furosemide 20 MG/2 ML VIAL IVP SCH ×2 (07:57→16:49)
[2021-05-12] MEDS: Sacubitril/Valsartan 24/26 MG 1 TABLET PO SCH ×2 (07:57→22:25)
[2021-05-12] MEDS: Spironolactone 25 MG TABLET PO SCH (07:57)
[2021-05-12] MEDS: *HR* Amiodarone 200 MG TABLET PO SCH (07:57)
[2021-05-12] MEDS: Aspirin Enteric Coated 81 MG Tablet PO SCH (07:57)
[2021-05-12] MEDS: carvediloL 25 MG TABLET PO SCH ×2 (07:57→16:48)
[2021-05-12] MEDS ORDERED: GuaiFENesin/Pseudophedrine TABLET PO PRN (20:58)
[2021-05-13 03:45] LABS: INR 2.2; Prothrombin Time 24.6 Seconds (9.4-12.1)
[2021-05-13 03:47] LABS: BUN/Creatinine Ratio 18 (6-26); Blood Urea Nitrogen 24 mg/dL (8-23); Calcium 8.8 mg/dL (8.6-10.3); Carbon Dioxide 24 mEq/L (23-29); Chloride 107 mEq/L (98-107); Glucose 130 mg/dL (70-105); Osmolality,Calculated 298 (280-300); Potassium 3.8 mEq/L (3.5-5.1); Sodium 141 mEq/L (136-145); eGFR For African Americans > 60 (> 60); eGFR For Non-African Americans 53 (> 60)
[2021-05-13] MEDS: Insulin LISPRO 300 UNITS/3 ML VIAL SUBQ SCH ×2 (07:17→13:26)
[2021-05-13] MEDS: carvediloL 25 MG TABLET PO SCH (07:48)
[2021-05-13] MEDS: Aspirin Enteric Coated 81 MG Tablet PO SCH (07:48)
[2021-05-13] MEDS: Sacubitril/Valsartan 24/26 MG 1 TABLET PO SCH (07:48)
[2021-05-13] MEDS: *HR* Amiodarone 200 MG TABLET PO SCH (07:48)
[2021-05-13] MEDS: Spironolactone 25 MG TABLET PO SCH (07:49)
[2021-05-13] MEDS: Furosemide 20 MG/2 ML VIAL IVP SCH (07:49)
[2021-05-13] MEDS: (Ezetimibe [Zetia] 10 MG Tablet) PO SCH (07:49)
[2021-05-13 11:15] VITALS: BP 103/72; PULSE 77; TEMP 97.7; O2SAT 95
[2021-05-13] MEDS ORDERED: *HR* Warfarin 7.5 MG TABLET PO ONE (18:00)
== END 2021-05-13 13:50 | disposition home or self-care (01) | DRG 291 ==
LOC: SUATTDRO → 3BNU 10:25 → EMEROOARM 10:25 → SUATTDRO 13:17 → 3BNU 14:07 → SUATTDRO 05-11 13:17
PROVIDERS: ADMIT Internal Medicine; ATTEND Internal Medicine